=== PATIENT | male | born 1955 | race Caucasian/White ===

== ENCOUNTER 2017-12-26 00:45 | Inpatient (IN) | payer OTHER ==
[~2017-12-26] VITALS: Ht 162.6 cm; Wt 88.3 kg
[2017-12-26] MEDS ORDERED: NITROGLYCERIN 0.4 MG SL PER TAB CHARGE SL PRN ×2 (01:00→02:45)
--- NOTE | 2017-12-26 01:07 | EMERGENCY ROOM VISIT NOTE ---
History Report prepared by Jeniferibtran: Eran Becker Under the Supervision of: Dr. Tyler Juarez M.D. First contact with patient: 00:50 Chief Complaint: CHEST PAIN Stated Complaint: CHEST PAIN Nursing Triage Summary: Pt arrives via ALS litter from [facility] where he was playing cards. Per medic, pt had an acute onset of midsternal chest pain with associated nausea, diaphoresis and lightheadedness. Pt reports breathing felt "labored". Pt reports that he went to the restroom, had a BM and had a near syncopal episode. Pain initially 8/10, given 324mg ASA and 2 ntg sprays. Upon arrival pt states he is feeling "much better" and is rating pain 1/10. Pt denies radiation of pain. Had laser surgery on urethra 3 weeks ago. Sx began approx midnight. Denies cardiac hx. History of Present Illness The patient is a 62 year old male who presents to the Emergency Room with complaints of sternal chest pain. Patient was brought in by EMS. Pain started a x1 hour ago when he went to use the restroom at the [facility]. He does not SOB when the pain started but denies it at this time. He states the pain was "squeezing" and "crushing." Patient was given ASA and Nitro in ambulance and notes his pain has improved since. Patient denies a cardiac history or history of high blood pressure, high cholesterol, or smoking history. Patient denies any urinary complaints the past few days. He denies a fever, abdominal pain, leg swelling or pain, or any other concerns. He denies a history of blood clots. The patient does note he had a recent urological procedure performed. Review of Systems See HPI for pertinent positives & negatives. A total of 10 systems reviewed and were otherwise negative. Constitutional: No fever, No chills Respiratory: + shortness of breath, No cough Abdomen: No pain, No nausea, No vomiting, No diarrhea, No constipation Musculoskeletal: No swelling, No calf pain Genitourinary - Male: No hematuria, No dysuria, No urinary frequency, No urinary urgency Past Medical & Surgical Medical Problems: (1) ARF (acute renal failure) (2) Chest pain in adult (3) No Known Active Medical Problems Surgical Problems: (1) History of hernia repair Family History Cancer Hypertension Social History Smoking Status: Current Some Day Smoker Drug Use: none Marital Status: in relationship Housing Status: lives with significant other Current/Historical Medications No Active Prescriptions or Reported Meds Allergies Coded Allergies: Antihistamines, Diphenhydramine-typ (Verified Adverse Reaction, Unknown, unk, 12/26/17) Physical Exam Vital Signs Date Time Temp Pulse Resp B/P (MAP) Pulse Ox O2 Delivery O2 Flow Rate FiO2 12/26/17 02:25 67 18 97 Room Air 12/26/17 02:16 110/70 12/26/17 02:10 64 16 97 12/26/17 02:01 104/64 12/26/17 01:55 71 14 97 12/26/17 01:47 106/71 12/26/17 01:40 85 20 95 12/26/17 01:35 87 13 94 Room Air 12/26/17 01:30 79 21 99 12/26/17 01:15 72 16 12/26/17 00:53 73 12/26/17 00:45 97 Room Air 12/26/17 00:45 36.4 78 18 121/82 97 Room Air 12/26/17 00:45 97 Room Air Physical Exam GENERAL: Patient is well appearing and in no acute distress. He is mildly anxious appearing. EYES: Horizontal Nystagmus noted; No scleral icterus, unremarkable pupils. ENT: Mucous membranes moist, no nasal congestion. NECK: No masses appreciated, no meningismus, trachea is midline. RESPIRATORY: No dyspnea. Clear to auscultation and equal bilaterally. No wheeze , no rhonchi. CARDIOVASCULAR: Regular rate and rhythm. No murmurs, rubs, gallops appreciated. GASTROINTESTINAL: Abdomen soft, nontender, no peritonitis. Bowel sounds positive. No masses appreciated. BACK: No midline tenderness, no CVA tenderness EXTREMITIES: Normal motion all extremities, no cyanosis, no edema. NEUROLOGIC: Alert and oriented, no acute motor or sensory deficits, no focal weakness, cranial nerves grossly intact. SKIN: No rash, no jaundice, no diaphoresis. Medical Decision & Procedures ER Provider Diagnostic Interpretation: X ray results are stated below per my interpretation: Chest: 1 view: No infiltrate, no effusion, normal cardiac border. CXR is rotated. Laboratory Results 12/26/17 00:26 Red Blood Count 5.89, Mean Corpuscular Volume 87.3, Mean Corpuscular Hemoglobin 31.2, Mean Corpuscular Hemoglobin Concent 35.8, Mean Platelet Volume 9.4, Neutrophils (%) (Auto) 57.2, Lymphocytes (%) (Auto) 30.1, Monocytes (%) (Auto) 7.8, Eosinophils (%) (Auto) 3.9, Basophils (%) (Auto) 0.2, Neutrophils # (Auto) 5.10, Lymphocytes # (Auto) 2.69, Monocytes # (Auto) 0.70, Eosinophils # (Auto) 0.35, Basophils # (Auto) 0.02 12/26/17 00:26 Test 12/26/17 00:26 12/26/17 01:46 White Blood Count 8.93 K/uL (4.8-10.8) Red Blood Count 5.89 M/uL (4.7-6.1) Hemoglobin 18.4 g/dL (14.0-18.0) Hematocrit 51.4 % (42-52) Mean Corpuscular Volume 87.3 fL (80-100) Mean Corpuscular Hemoglobin 31.2 pg (25-34) Mean Corpuscular Hemoglobin Concent 35.8 g/dl (32-36) Platelet Count 173 K/uL (130-400) Mean Platelet Volume 9.4 fL (7.4-10.4) Neutrophils (%) (Auto) 57.2 % Lymphocytes (%) (Auto) 30.1 % Monocytes (%) (Auto) 7.8 % Eosinophils (%) (Auto) 3.9 % Basophils (%) (Auto) 0.2 % Neutrophils # (Auto) 5.10 K/uL (1.4-6.5) Lymphocytes # (Auto) 2.69 K/uL (1.2-3.4) Monocytes # (Auto) 0.70 K/uL (0.11-0.59) Eosinophils # (Auto) 0.35 K/uL (0-0.5) Basophils # (Auto) 0.02 K/uL (0-0.2) RDW Standard Deviation 40.9 fL (36.4-46.3) RDW Coefficient of Variation 12.8 % (11.5-14.5) Immature Granulocyte % (Auto) 0.8 % Immature Granulocyte # (Auto) 0.07 K/uL (0.00-0.02) Anion Gap 8.0 mmol/L (3-11) Est Creatinine Clear Calc Drug Dose 34.2 ml/min Estimated GFR () 40.4 Estimated GFR (Non- 34.9 BUN/Creatinine Ratio 10.8 (10-20) Calcium Level 8.9 mg/dl (8.5-10.1) Bedside D-Dimer 363 ng/mlFEU (0-450) Medications Administered Medications (Trade) Dose Ordered Sig/Lillian Route Start Time Stop Time Status Last Admin Dose Admin Nitroglycerin (Nitrostat Tab) 0.4 mg Q5M PRN SL 12/26/17 01:00 12/26/17 02:54 DC 12/26/17 01:31 0.4 MG Nitroglycerin (Nitroglycerin 2% Oint) 1 inch NOW ONCE EXT 12/26/17 01:30 12/26/17 01:31 DC 12/26/17 01:32 1 INCH Sodium Chloride 1,000 ml @ 999 mls/hr Q1H1M STAT IV 12/26/17 01:43 12/26/17 02:43 DC 12/26/17 01:49 999 MLS/HR Fentanyl Citrate (Fentanyl Inj) 75 mcg NOW STAT IV 12/26/17 01:43 12/26/17 01:44 DC 12/26/17 01:49 75 MCG ECG Per My Interpretation Rate (beats per minute): 72 Rhythm: normal sinus Findings: no ectopy, other (no ischemia. QTC 440) Comparison ECG Date: no prior available ED Course Bedside Monitor ReadinAM: Pulse: 75 on bedside monitor, normal sinus rhythm, "as interpreted by me." 0104AM: Oxygen Saturation: 98% on room air, within normal limits, "as interpreted by me." Repeat EKG 0130: Normal Sinus Rhythm with a rate of 77 beats per minute. No ectopy or ischemia. Compared to his EKG from earlier this evening there is t-wave flattening laterally with no stemi noted. "As interpreted by me." Medical Decision Mr. Mina is a pleasant 62 year old male who reports to the ED for crushing chest pain noted x1 hour FINANCIAL AID. Patient received ASA and Nitro in route by EMS and noted his pain improved. EKG initially ok, did have some repeat cp pain requiring SLNTG, nitro paste, and small dose fentanyl. Repeat EKG with some flattened T waves. Very concerning story for unstable angina. Looking well and stable. CXR clear. He cr is bumped a bit. With stable vitals, no risk factors and negative dimer I feel this is unlikely PE/Dissection and that CT would be dangerous given his renal function. He is comfortable with coming in to hospital. Differential Diagnosis: Cardiac Ischemia (STEMI, NSTEMI, Unstable Angina, etc), Aortic Dissection, Arrhythmia, Pulmonary Embolism, Pneumonia, Pneumothorax, MSK, Infectious, Pericarditis/Myocarditis, Esophageal Rupture, Gastrointestinal, amongst other pathologies entertained. Rechecks: 0124: Patient's chest pain is returning. We will repeat his EKG. 0140: Still substernal chest pain after Nitro that he was given here. 0200: Patient is feeling better, and has no chest pain at this time. 0215: Discussed admission with the patient and he agrees. Patient will be admitted to Dr. Peres's service. Medication Reconcilliation Current Medication List: was personally reviewed by me Blood Pressure Screening Patient's blood pressure: Normal blood pressure Consults Time Called: 214 Consulting Physician: Dr. Peres Reviewed HPI, ROS, PE, and findings. At this time he agrees to admit the patient. Impression Primary Impression: Substernal chest pain Additional Impression: Acute renal insufficiency Scribe Attestation The scribe's documentation has been prepared under my direction and personally reviewed by me in its entirety. I confirm that the note above accurately reflects all work, treatment, procedures, and medical decision making performed by me. Departure Information Dispostion Being Evaluated By Hospitalist Prescriptions No Active Prescriptions or Reported Meds Referrals Salvatore Martinez M.D. (PCP) Forms Call Back Authorization, HOME CARE DOCUMENTATION FORM, IMPORTANT VISIT INFORMATION Patient Instructions [facility] Problem Qualifiers
[2017-12-26 01:15] LABS: BASO % 0.2 %; BASO ABS # 0.02 K/uL (0-0.2); EOS % 3.9 %; EOS ABS # 0.35 K/uL (0-0.5); HEMATOCRIT 51.4 % (42-52); HEMOGLOBIN 18.4 g/dL (14.0-18.0); IG# 0.07 K/uL (0.00-0.02); LYMPH % 30.1 %; LYMPH ABS # 2.69 K/uL (1.2-3.4); MEAN CELL VOLUME 87.3 fL (80-100); MEAN CORPUSCULAR HEMOGLOBIN 31.2 pg (25-34); MEAN CORPUSCULAR HGB CONC 35.8 g/dl (32-36); MEAN PLATELET VOLUME 9.4 fL (7.4-10.4); MONO % 7.8 %; NEUT % 57.2 %; PLATELET COUNT 173 K/uL (130-400); RED CELL DISTRIBUTION WIDTH CV 12.8 % (11.5-14.5); RED CELL DISTRIBUTION WIDTH SD 40.9 fL (36.4-46.3); WHITE BLOOD COUNT 8.93 K/uL (4.8-10.8)
[2017-12-26] MEDS ORDERED: NITROGLYCERIN 2% OINTMENT 30GM TUBE EXT ONE ×2 (01:27→01:30)
[2017-12-26 01:41] LABS: BLOOD UREA NITROGEN 21 mg/dl (7-18); CALCIUM 8.9 mg/dl (8.5-10.1); CARBON DIOXIDE 26 mmol/L (21-32); CREATININE 1.97 mg/dl (0.60-1.40); GLUCOSE 138 mg/dl (70-99); POTASSIUM 3.3 mmol/L (3.5-5.1); SODIUM 139 mmol/L (136-145)
[2017-12-26] MEDS ORDERED: FENTANYL CITRATE INJ 50 MCG/1 ML 2 ML VIAL IV STA (01:43)
[2017-12-26] MEDS ORDERED: SODIUM CHLORIDE 0.9% 1000ML 1,000 ML IV STA (01:43)
[2017-12-26] MEDS ORDERED: MoRPHine SULFATE 2 MG/ML CARP IV PRN (02:45)
[2017-12-26] MEDS ORDERED: ACETAMINOPHEN 325 MG TAB PO PRN (02:45)
[2017-12-26] MEDS ORDERED: ONDANSETRON INJ 2 MG/ML 2 ML VIAL IV PRN (02:45)
[2017-12-26] MEDS ORDERED: MAGNESIUM HYDROXIDE SUSP 30 ML UDC PO PRN (02:45)
[2017-12-26] MEDS ORDERED: ZOLPIDEM TARTRATE 5 MG TAB PO PRN (02:45)
[2017-12-26] MEDS ORDERED: ALUMINUM/MAGNESIUM/SIMETH (MAALOX MAX) 30 ML UDC PO PRN (02:45)
[2017-12-26] MEDS ORDERED: POLYETHYLENE (MIRALAX) 17 GM PACK PO PRN (02:45)
--- NOTE | 2017-12-26 03:06 | History and Physical ---
History & Physical Date & Time of Service: Dec 26, 2017 at 02:45 Chief Complaint: Chest Pain Primary Care Physician: Salvatore Martinez M.D. History of Present Illness Source: patient, hospital records 62 y/o M without a significant medical history. Developed central CP, nonradiating, associated with SOB, diaphoresis and nausea. The pain was relieved by NTG and Fentanyl on arrival to the ER. Initial troponin is negative , An EKG shows flattening of T waves in lateral leads as compared to a repeat EKG obtained after his CP had resolved. Initial labs are notable for ARF with a creatinine of 2.0. He denies a history of CKD. He recently had surgery for a urethral stricture and denies any dysuria over the past few wks. Past Medical/Surgical History 1) Urethral stricture - repaired 11/2107 2) Umbilical hernia surgery 2000 Family History Cancer Hypertension Father due to complications of Parkinson's and dementia - age 82 Mother due to anemia - she was transfusion-dependent and decided after a while that she did not want any further transfusions per family Social History Smokes cigars most days - does not drink any alcohol. 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 Smoking Status: Current Some Day Smoker Drug Use: none Marital Status: in relationship Allergies Coded Allergies: Antihistamines, Diphenhydramine-typ (Verified Adverse Reaction, Unknown, unk, 12/26/17) Home Medications No Active Prescriptions or Reported Meds Review of Systems Constitutional: + sweats, No fever, No chills Eyes: No worsening of vision ENT: No hearing loss, No unusual epistaxis, No nasal symptoms Respiratory: + shortness of breath, No cough, No sputum, No wheezing Cardiovascular: + chest pain, No orthopnea, No PND Abdomen: + nausea, No pain Musculoskeletal: No joint pain Genitourinary - Male: No hematuria, No dysuria Neurologic: No memory loss, No paralysis, No weakness Psychiatric: No depression symptoms Endocrine: No fatigue Hematologic / Lymphatic: No abnormal bleeding/bruising Integumentary: No rash Allergic / Immunologic: No environmental allergies Physical Exam Vital Signs Date Time Temp Pulse Resp B/P (MAP) Pulse Ox O2 Delivery O2 Flow Rate FiO2 12/26/17 02:25 67 18 97 Room Air 12/26/17 02:16 110/70 12/26/17 02:10 64 16 97 12/26/17 02:01 104/64 12/26/17 01:55 71 14 97 12/26/17 01:47 106/71 12/26/17 01:40 85 20 95 12/26/17 01:35 87 13 94 Room Air 12/26/17 01:30 79 21 99 12/26/17 01:15 72 16 12/26/17 00:53 73 12/26/17 00:45 97 Room Air 12/26/17 00:45 36.4 78 18 121/82 97 Room Air 12/26/17 00:45 97 Room Air General Appearance: WD/WN, no apparent distress, + pertinent finding ( Overweight, middle-aged male - no distress) Head: normocephalic Eyes: normal inspection ENT: normal ENT inspection, pharynx normal Neck: supple, no JVD Respiratory/Chest: chest non-tender, lungs clear, normal breath sounds Cardiovascular: regular rate, rhythm, no edema, no gallop Abdomen/GI: normal bowel sounds, non tender, soft Back: normal inspection, no CVA tenderness Extremities/Musculoskelatal: normal inspection, no calf tenderness, normal capillary refill 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, no motor/sensory deficits, alert, oriented x 3 Skin: normal color Diagnostics Laboratory Results Results Past 24 Hours Test 12/26/17 00:26 12/26/17 01:46 Range/Units White Blood Count 8.93 4.8-10.8 K/uL Red Blood Count 5.89 4.7-6.1 M/uL Hemoglobin 18.4 14.0-18.0 g/dL Hematocrit 51.4 42-52 % Mean Corpuscular Volume 87.3 80-100 fL Mean Corpuscular Hemoglobin 31.2 25-34 pg Mean Corpuscular Hemoglobin Concent 35.8 32-36 g/dl Platelet Count 173 130-400 K/uL Mean Platelet Volume 9.4 7.4-10.4 fL Neutrophils (%) (Auto) 57.2 % Lymphocytes (%) (Auto) 30.1 % Monocytes (%) (Auto) 7.8 % Eosinophils (%) (Auto) 3.9 % Basophils (%) (Auto) 0.2 % Neutrophils # (Auto) 5.10 1.4-6.5 K/uL Lymphocytes # (Auto) 2.69 1.2-3.4 K/uL Monocytes # (Auto) 0.70 0.11-0.59 K/uL Eosinophils # (Auto) 0.35 0-0.5 K/uL Basophils # (Auto) 0.02 0-0.2 K/uL RDW Standard Deviation 40.9 36.4-46.3 fL RDW Coefficient of Variation 12.8 11.5-14.5 % Immature Granulocyte % (Auto) 0.8 % Immature Granulocyte # (Auto) 0.07 0.00-0.02 K/uL Sodium Level 139 136-145 mmol/L Potassium Level 3.3 3.5-5.1 mmol/L Chloride Level 105 98-107 mmol/L Carbon Dioxide Level 26 21-32 mmol/L Anion Gap 8.0 3-11 mmol/L Blood Urea Nitrogen 21 7-18 mg/dl Creatinine 1.97 0.60-1.40 mg/dl Est Creatinine Clear Calc Drug Dose 34.2 ml/min Estimated GFR () 40.4 Estimated GFR (Non- 34.9 BUN/Creatinine Ratio 10.8 10-20 Random Glucose 138 70-99 mg/dl Calcium Level 8.9 8.5-10.1 mg/dl Troponin I < 0.015 0-0.045 ng/ml Bedside D-Dimer 363 0-450 ng/mlFEU EKG T waves are flatter in the lateral leads on an initial EKG as compared to a follow up Impression Assessment and Plan 62 y/o M without a significant medical history. Developed central CP, nonradiating, associated with SOB, diaphoresis and nausea. The pain was relieved by NTG and Fentanyl on arrival to the ER. Initial troponin is negative , An EKG shows flattening of T waves in lateral leads as compared to a repeat EKG obtained after his CP had resolved. Initial labs are notable for ARF with a creatinine of 2.0. leukocytosis and mild hypokalemia. He denies a history of CKD. He recently had surgery for a urethral stricture and denies any dysuria over the past few wks. 1) Chest pain - pt has radha factors of age, weight, smoking. The history is convincing for cardiac etiology and there are subtle EKG changes. He will be placed on ASA, a Statin and full-dose Heparin pending a second troponin. If he rules out, an inpt stress test would be merited. 2) ARF - chronicity is not entirely clear. We can likely source pre-op numbers from his primary considering his recent urethral surgery. He does not report any dysuria so obstructive uropathy is unlikely at present. He does state that he was mowing his lawn in the heat all day and his BUN is slightly elevated as well. This may be prerenal therefore. He was provided with a fluid bolus in the ER and we will continue aggressive hydration as he may require a cath eventually. A repeat BMP is pending for AM. 3) K is slightly low and has been repleted. 4) Smoking cessation will be addressed. Full code - Heparin prophylaxis Total time for this admit including review of labs, meds, imaging, records - discussion with pt and ER attending - 35 min Resuscitation Status VTE Prophylaxis Will order VTE Prophylaxis: Yes
[2017-12-26] MEDS ORDERED: HEPARIN 25000 UNIT/500 ML D5W ONE (03:30)
[2017-12-26] MEDS ORDERED: MAGNESIUM SULFATE 1GM / D5W 1 GM BAG IV ONE (03:30)
[2017-12-26] MEDS ORDERED: POTASSIUM CHLORIDE PWD 20 MEQ PACK PO ONE (03:45)
[2017-12-26] MEDS ORDERED: MAGNESIUM SULFATE 1GM / D5W 100 ML IV ONE (03:45)
[2017-12-26] MEDS ORDERED: HEPARIN SOD 5000 UNIT/0.5 ML CARP ONE (03:51)
[2017-12-26] MEDS: HEPARIN 25,000 UNIT/500ML D5W 500 ML IV SCH ×2 (04:08→23:43)
[2017-12-26] MEDS: D5NSS + 20MEQ KCL 1,000 ML IV SCH ×2 (05:06→11:45)
[2017-12-26 05:27] VITALS: BP 113/69; PULSE 82; TEMP 36.9; BMI 32.7
[2017-12-26] MEDS ORDERED: HEPARIN SOD 5000 UNIT/0.5 ML CARP SQ SCH (06:00)
--- NOTE | 2017-12-26 07:00 | DIAGNOSTIC IMAGING REPORT ---
CHEST ONE VIEW PORTABLE CLINICAL HISTORY: Chest pain. COMPARISON STUDY: No previous studies for comparison. FINDINGS: Patient is rotated. No pneumothorax or pleural effusion is noted. No consolidation. Mild elevation of the left hemidiaphragm is noted. There is mild enlargement of the cardiac silhouette. Pulmonary vascularity is normal. IMPRESSION: No acute cardiopulmonary findings. Electronically signed by: Sameer Skinner M.D. 12/26/2017 6:59 AM Dictated Date/Time: 12/26/2017 6:57 AM
[2017-12-26 07:38] VITALS: BP 109/66; PULSE 83; TEMP 37; O2SAT 95
[2017-12-26] MEDS: ATORVASTATIN 40 MG TAB PO SCH (08:03)
[2017-12-26] MEDS: ASPIRIN 81 MG ECTAB PO SCH (08:03)
[2017-12-26 08:13] LABS: HEMATOCRIT 42.3 % (42-52); HEMOGLOBIN 14.6 g/dL (14.0-18.0); MEAN CELL VOLUME 86.9 fL (80-100); MEAN CORPUSCULAR HGB CONC 34.5 g/dl (32-36); MEAN PLATELET VOLUME 9.3 fL (7.4-10.4); PLATELET COUNT 160 K/uL (130-400); RED CELL DISTRIBUTION WIDTH CV 12.7 % (11.5-14.5); RED CELL DISTRIBUTION WIDTH SD 40.8 fL (36.4-46.3); WHITE BLOOD COUNT 8.33 K/uL (4.8-10.8)
[2017-12-26 08:34] LABS: CALCIUM 8.4 mg/dl (8.5-10.1); CREATININE 1.48 mg/dl (0.60-1.40); POTASSIUM 4.6 mmol/L (3.5-5.1)
[2017-12-26 10:32] LABS: PTT PATIENT 47.1 SECONDS (21.0-31.0)
[2017-12-26 11:39] VITALS: BP 98/65; PULSE 72; TEMP 37; O2SAT 96
[2017-12-26] MEDS ORDERED: PERFLUTREN LIPID MICROSPHERE (DEFINITY) IV ONE (13:51)
[2017-12-26 13:57] LABS: CALCIUM 8.5 mg/dl (8.5-10.1); CREATININE 1.18 mg/dl (0.60-1.40); POTASSIUM 4.1 mmol/L (3.5-5.1)
--- NOTE | 2017-12-26 14:59 | Hospitalist Progress Note ---
Hospitalist Progress Note Date of Service Dec 26, 2017. Subjective Pt evaluation today including: conversation w/ patient, conversation w/ family , physical exam, chart review, lab review, review of studies, conversation w/ device sales consultant (Dr. Garay), review of inpatient medication list Patient seen and evaluated. Admitted early this AM for CP. Patient is completely asymptomatic at this time. No further syncopal episodes or CP. RUSTY is now resolved and urinating without issue. Likely pre-renal in setting of mild dehydration from lawn mowing but did have a urethral stricture repaired approx. 3 weeks ago but given resolution an obstructive cause is unlikely Initial two troponins were negative but third did mildly increase to 0.082 and now most recent is 0.[address] Garay who will be seeing the patient in consultation. Heparin gtt was initiated on admission without issues at this time. Constitutional: No fever, No chills Respiratory: No cough, No shortness of breath Cardiovascular: No chest pain, No palpitations Abdomen: No pain, No nausea, No vomiting, No diarrhea, No constipation Musculoskeletal: No swelling, No calf pain Heme: No abnormal bleeding/bruising Medications Current Inpatient Medications Medications (Trade) Dose Ordered Sig/Lillian Route Start Time Stop Time Status Last Admin Dose Admin Potassium Chloride/Dextrose/ Sod Cl 1,000 ml @ 150 mls/hr Q6H40M IV 12/26/17 03:45 12/26/17 17:04 12/26/17 11:45 150 MLS/HR Acetaminophen (Tylenol Tab) 650 mg Q4H PRN PO 12/26/17 02:45 01/25/18 02:44 Al Hydrox/Mg Hydrox/Simethicone (Maalox Max Susp) 15 ml Q4H PRN PO 12/26/17 02:45 01/25/18 02:44 Magnesium Hydroxide (Milk Of Magnesia Susp) 30 ml Q12H PRN PO 12/26/17 02:45 01/25/18 02:44 Zolpidem Tartrate (Ambien Tab) 5 mg HSZ PRN PO 12/26/17 02:45 01/25/18 02:44 Ondansetron HCl (Zofran Inj) 4 mg Q6H PRN IV 12/26/17 02:45 01/25/18 02:44 Nitroglycerin (Nitrostat Tab) 0.4 mg UD PRN SL 12/26/17 02:45 01/25/18 02:44 Morphine Sulfate (MoRPHine SULFATE INJ) 2 mg Q30M PRN IV 12/26/17 02:45 01/09/18 02:44 Aspirin (Ecotrin Tab) 81 mg QAM PO 12/26/17 09:00 01/25/18 08:59 12/26/17 08:03 81 MG Polyethylene (Miralax Powder Packet) 17 gm DAILY PRN PO 12/26/17 02:45 01/25/18 02:44 Atorvastatin Calcium (Lipitor Tab) 40 mg QAM PO 12/26/17 09:00 01/25/18 08:59 12/26/17 08:03 40 MG Heparin Sodium/ Dextrose 500 ml @ 24 mls/hr [id number] IV 12/26/17 04:00 01/25/18 03:59 12/26/17 04:08 24 MLS/HR Objective Vital Signs Date Time Temp Pulse Resp B/P (MAP) Pulse Ox O2 Delivery O2 Flow Rate FiO2 12/26/17 11:39 37.0 72 19 98/65 (76) 96 Room Air 12/26/17 08:35 Room Air 12/26/17 07:38 37.0 83 19 109/66 (80) 95 Room Air 12/26/17 05:27 36.9 82 14 113/69 Room Air 12/26/17 04:01 71 18 116/75 96 Room Air 12/26/17 02:25 67 18 97 Room Air 12/26/17 02:16 110/70 12/26/17 02:10 64 16 97 12/26/17 02:01 104/64 12/26/17 01:55 71 14 97 12/26/17 01:47 106/71 12/26/17 01:40 85 20 95 12/26/17 01:35 87 13 94 Room Air 12/26/17 01:30 79 21 99 12/26/17 01:15 72 16 12/26/17 00:53 73 12/26/17 00:45 97 Room Air 12/26/17 00:45 36.4 78 18 121/82 97 Room Air 12/26/17 00:45 97 Room Air Physical Exam General Appearance: WD/WN, no apparent distress Eyes: sclerae normal ENT: hearing grossly normal Neck: supple, no JVD, trachea midline Respiratory/Chest: lungs clear, normal breath sounds, no respiratory distress, no accessory muscle use Cardiovascular: regular rate, rhythm, no gallop, no murmur Abdomen: normal bowel sounds, non tender, soft Extremities: no pedal edema Neurologic/Psychiatric: alert, oriented x 3 Skin: normal color, warm/dry Laboratory Results Last 24 Hours Test 12/26/17 00:26 12/26/17 01:46 12/26/17 04:18 12/26/17 04:37 White Blood Count 8.93 K/uL Red Blood Count 5.89 M/uL Hemoglobin 18.4 g/dL Hematocrit 51.4 % Mean Corpuscular Volume 87.3 fL Mean Corpuscular Hemoglobin 31.2 pg Mean Corpuscular Hemoglobin Concent 35.8 g/dl Platelet Count 173 K/uL Mean Platelet Volume 9.4 fL Neutrophils (%) (Auto) 57.2 % Lymphocytes (%) (Auto) 30.1 % Monocytes (%) (Auto) 7.8 % Eosinophils (%) (Auto) 3.9 % Basophils (%) (Auto) 0.2 % Neutrophils # (Auto) 5.10 K/uL Lymphocytes # (Auto) 2.69 K/uL Monocytes # (Auto) 0.70 K/uL Eosinophils # (Auto) 0.35 K/uL Basophils # (Auto) 0.02 K/uL RDW Standard Deviation 40.9 fL RDW Coefficient of Variation 12.8 % Immature Granulocyte % (Auto) 0.8 % Immature Granulocyte # (Auto) 0.07 K/uL Sodium Level 139 mmol/L Potassium Level 3.3 mmol/L Chloride Level 105 mmol/L Carbon Dioxide Level 26 mmol/L Anion Gap 8.0 mmol/L Blood Urea Nitrogen 21 mg/dl Creatinine 1.97 mg/dl Est Creatinine Clear Calc Drug Dose 34.2 ml/min Estimated GFR () 40.4 Estimated GFR (Non- 34.9 BUN/Creatinine Ratio 10.8 Random Glucose 138 mg/dl Calcium Level 8.9 mg/dl Troponin I < 0.015 ng/ml < 0.015 ng/ml Bedside D-Dimer 363 ng/mlFEU Activated Partial Thromboplast Time 25.0 SECONDS Partial Thromboplastin Ratio 1.0 Test 12/26/17 07:50 12/26/17 10:03 12/26/17 13:00 White Blood Count 8.33 K/uL Red Blood Count 4.87 M/uL Hemoglobin 14.6 g/dL Hematocrit 42.3 % Mean Corpuscular Volume 86.9 fL Mean Corpuscular Hemoglobin 30.0 pg Mean Corpuscular Hemoglobin Concent 34.5 g/dl RDW Standard Deviation 40.8 fL RDW Coefficient of Variation 12.7 % Platelet Count 160 K/uL Mean Platelet Volume 9.3 fL Sodium Level 140 mmol/L 139 mmol/L Potassium Level 4.6 mmol/L 4.1 mmol/L Chloride Level 108 mmol/L 110 mmol/L Carbon Dioxide Level 25 mmol/L 23 mmol/L Anion Gap 7.0 mmol/L 6.0 mmol/L Blood Urea Nitrogen 18 mg/dl 15 mg/dl Creatinine 1.48 mg/dl 1.18 mg/dl Est Creatinine Clear Calc Drug Dose 50.0 ml/min 62.7 ml/min Estimated GFR () 57.1 75.1 Estimated GFR (Non- 49.3 64.8 BUN/Creatinine Ratio 12.2 12.5 Random Glucose 214 mg/dl 191 mg/dl Calcium Level 8.4 mg/dl 8.5 mg/dl Magnesium Level 2.5 mg/dl Troponin I 0.082 ng/ml 0.759 ng/ml Triglycerides Level 102 mg/dl Cholesterol Level 175 mg/dl HDL Cholesterol 35 mg/dl LDL Cholesterol, Calculated 120 mg/dl VLDL Cholesterol, Calculated 20 mg/dl Cholesterol/HDL Ratio 5.0 Hepatitis C Antibody Screen NEG Activated Partial Thromboplast Time 47.1 SECONDS Partial Thromboplastin Ratio 1.8 Assessment and Plan 62 y/o M without a significant medical history. Developed central CP, nonradiating, associated with SOB, diaphoresis and nausea. The pain was relieved by NTG and Fentanyl on arrival to the ER. Initial troponin is negative , An EKG shows flattening of T waves in lateral leads as compared to a repeat EKG obtained after his CP had resolved. Initial labs are notable for ARF with a creatinine of 2.0. leukocytosis and mild hypokalemia. He denies a history of CKD. He recently had surgery for a urethral stricture and denies any dysuria over the past few wks. Chest Pain - Possible NSTEMI: - Patient is completely asymptomatic at this time - troponins were initially negative but trended to 0.08 and with most recent lab is at 0.7 - with initial elevated troponin it maybe explained by the RUSTY however with the continue climb this may be more of a cardiac etiology - Continue heparin gtt at this time - likely cover x 48 hours - ASA 81 mg daily; Atorvastatin 40 mg daily - Echo pending - Consult cardiology - discussed with Dr. Garay - plan for continued troponin checks and echo to assess wall motion abnormalities; pending trop trending and eval consideration for heart catheterization Acute Kidney Injury - Likely Pre-Renal: - Has ureteral stricture repair approx. [address] Jackson - no issues urinary mcgrath - given the improvement with fluids this was likely pre- renal and no signs of obstruction at this time but will continue to monitor DVT Prophylaxis: Heparin gtt Code Status: FULL RESUSCITATION Disposition: From home Continued [facility] stay due to: multiple IV medications needed Discharge planning: home
--- NOTE | 2017-12-26 15:21 | History and Physical ---
History General Date of Service: Dec 26, 2017. Stated Complaint: Chest Pain (Pawan Medley D.O.) History of Present Illness This is a resident note. 62 y/o M with no significant PMH presented to ER 12/26 with nonradiating CP along with SOB, diaphoresis, and nausea , and was relieved by NTG and fentanyl. Initial trops were negative and EKG showed flattened T waves on lateral leads. Today, pt found in bed in NAD and no other concerns or complaints. Historian: patient (Pawan Medley D.O.) Review of Systems Constitutional: No fever, No chills, No sweats, No weakness Respiratory: No cough, No wheezing, No shortness of breath Cardiac: No chest pain, No edema, No palpitations Abdomen: No pain, No nausea, No vomiting, No diarrhea, No constipation Male : No dysuria, No hematuria Heme: No abnormal bleeding/bruising Skin: No rash, No itch, No new/changing skin lesions (Pawan Medley D.Suhail.) Musculoskeletal: No joint pain, No muscle pain, No swelling, No calf pain ( Pawan Medley D.Suhail.) All Other Systems: Reviewed and Negative (Pawan Medley D.Nnamdi) Family History Cancer Hypertension (Pawan Medley D.Suhail.) Cancer Hypertension (Brody Garay MD) Social History Smoking Status: Current Some Day Smoker (1 cigar/day. No cigarettes. 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) Drug Use: none Marital Status: in relationship (gf) Housing Status: lives with significant other (Pawan Medley D.Nnamdi) History of MDRO History of MDRO: No (Pawan Medley D.Nnamdi) Allergies Coded Allergies: Antihistamines, Diphenhydramine-typ (Verified Adverse Reaction, Unknown, unk, 12/26/17) Current Home Medications Reported Home Medications Medications Dose Route/Sig Max Daily Dose Days Date Category No Active Prescriptions or Reported Medications Rx (Pawan Medley, Elpidio.O.) Physical Exam Date Time Temp Pulse Resp B/P (MAP) Pulse Ox O2 Delivery O2 Flow Rate FiO2 12/26/17 11:39 37.0 72 19 98/65 (76) 96 Room Air 12/26/17 08:35 Room Air 12/26/17 07:38 37.0 83 19 109/66 (80) 95 Room Air 12/26/17 05:27 36.9 82 14 113/69 Room Air 12/26/17 04:01 71 18 116/75 96 Room Air 12/26/17 02:25 67 18 97 Room Air 12/26/17 02:16 110/70 12/26/17 02:10 64 16 97 12/26/17 02:01 104/64 12/26/17 01:55 71 14 97 12/26/17 01:47 106/71 12/26/17 01:40 85 20 95 12/26/17 01:35 87 13 94 Room Air 12/26/17 01:30 79 21 99 12/26/17 01:15 72 16 12/26/17 00:53 73 12/26/17 00:45 97 Room Air 12/26/17 00:45 36.4 78 18 121/82 97 Room Air 12/26/17 00:45 97 Room Air Weight in Kilograms: 86.500 Constitutional: General Apperance: heathly-appearing Level of Distress: NAD Head: normocephalic, atraumatic Lungs: Respiratory effort: no dyspnea Auscultation: breath sounds normal, no wheezing, no rales/crackles Cardiovascular: Heart Auscultation: RRR, normal S1, normal S2, no murmurs Abdomen: Inspection & Palpation: soft, non-distended, no tenderness, guarding & rebound Extremities: no cyanosis, no edema (Pawan Medley., D.OLeena) Diagnostics Laboratory Results Results Past 24 Hours Test 12/26/17 00:26 12/26/17 01:46 12/26/17 04:18 12/26/17 04:37 Range/Units White Blood Count 8.93 4.8-10.8 K/uL Red Blood Count 5.89 4.7-6.1 M/uL Hemoglobin 18.4 14.0-18.0 g/dL Hematocrit 51.4 42-52 % Mean Corpuscular Volume 87.3 80-100 fL Mean Corpuscular Hemoglobin 31.2 25-34 pg Mean Corpuscular Hemoglobin Concent 35.8 32-36 g/dl Platelet Count 173 130-400 K/uL Mean Platelet Volume 9.4 7.4-10.4 fL Neutrophils (%) (Auto) 57.2 % Lymphocytes (%) (Auto) 30.1 % Monocytes (%) (Auto) 7.8 % Eosinophils (%) (Auto) 3.9 % Basophils (%) (Auto) 0.2 % Neutrophils # (Auto) 5.10 1.4-6.5 K/uL Lymphocytes # (Auto) 2.69 1.2-3.4 K/uL Monocytes # (Auto) 0.70 0.11-0.59 K/uL Eosinophils # (Auto) 0.35 0-0.5 K/uL Basophils # (Auto) 0.02 0-0.2 K/uL RDW Standard Deviation 40.9 36.4-46.3 fL RDW Coefficient of Variation 12.8 11.5-14.5 % Immature Granulocyte % (Auto) 0.8 % Immature Granulocyte # (Auto) 0.07 0.00-0.02 K/uL Sodium Level 139 136-145 mmol/L Potassium Level 3.3 3.5-5.1 mmol/L Chloride Level 105 98-107 mmol/L Carbon Dioxide Level 26 21-32 mmol/L Anion Gap 8.0 3-11 mmol/L Blood Urea Nitrogen 21 7-18 mg/dl Creatinine 1.97 0.60-1.40 mg/dl Est Creatinine Clear Calc Drug Dose 34.2 ml/min Estimated GFR () 40.4 Estimated GFR (Non- 34.9 BUN/Creatinine Ratio 10.8 10-20 Random Glucose 138 70-99 mg/dl Calcium Level 8.9 8.5-10.1 mg/dl Troponin I < 0.015 < 0.015 0-0.045 ng/ml Bedside D-Dimer 363 0-450 ng/mlFEU Activated Partial Thromboplast Time 25.0 21.0-31.0 SECONDS Partial Thromboplastin Ratio 1.0 Test 12/26/17 07:50 12/26/17 10:03 12/26/17 13:00 Range/Units White Blood Count 8.33 4.8-10.8 K/uL Red Blood Count 4.87 4.7-6.1 M/uL Hemoglobin 14.6 14.0-18.0 g/dL Hematocrit 42.3 42-52 % Mean Corpuscular Volume 86.9 80-100 fL Mean Corpuscular Hemoglobin 30.0 25-34 pg Mean Corpuscular Hemoglobin Concent 34.5 32-36 g/dl RDW Standard Deviation 40.8 36.4-46.3 fL RDW Coefficient of Variation 12.7 11.5-14.5 % Platelet Count 160 130-400 K/uL Mean Platelet Volume 9.3 7.4-10.4 fL Sodium Level 140 139 136-145 mmol/L Potassium Level 4.6 4.1 3.5-5.1 mmol/L Chloride Level 108 110 98-107 mmol/L Carbon Dioxide Level 25 23 21-32 mmol/L Anion Gap 7.0 6.0 3-11 mmol/L Blood Urea Nitrogen 18 15 7-18 mg/dl Creatinine 1.48 1.18 0.60-1.40 mg/dl Est Creatinine Clear Calc Drug Dose 50.0 62.7 ml/min Estimated GFR () 57.1 75.1 Estimated GFR (Non- 49.3 64.8 BUN/Creatinine Ratio 12.2 12.5 10-20 Random Glucose 214 191 70-99 mg/dl Calcium Level 8.4 8.5 8.5-10.1 mg/dl Magnesium Level 2.5 1.8-2.4 mg/dl Troponin I 0.082 0.759 0-0.045 ng/ml Triglycerides Level 102 0-150 mg/dl Cholesterol Level 175 0-200 mg/dl HDL Cholesterol 35 mg/dl LDL Cholesterol, Calculated 120 mg/dl VLDL Cholesterol, Calculated 20 mg/dl Cholesterol/HDL Ratio 5.0 Hepatitis C Antibody Screen NEG NEG Activated Partial Thromboplast Time 47.1 21.0-31.0 SECONDS Partial Thromboplastin Ratio 1.8 (Pawan Medley, D.O.) Impression Assessment and Plan 1) Chest Pain -asymptomatic currently -trop elevated 0.759. Continue to trend -Echo performed in afternoon, awaiting results -currently on heparin drip, will continue -ASA 81 mg and atorvastatin 40 mg daily, continue -Pt is contemplating whether to pursue Cath. Discussed benefits/risks with team. Will f/u tomorrow. -If have ongoing CP, notify immediately to nurse 2) RUSTY -no urinary complaints currently -continue to monitor (Pawan Medley, Elpidio.O.) Addendum by Cardiology attending: This is family practice resident note. Please see my note under separate cover for cardiology consultation/note. Nahid Garay (Brody Garay MD) Advanced Directives Existing Living Will: No Existing Power of Primer Supervisor: No (Pawan Medley, D.O.) Resuscitation Status FULL RESUSCITATION (Pawan Medley, Elpidio.O.) Resident Involvement: Resident Care Provided Care Provided: Adult Hospital Medicine (Pawan Medley, D.O.)
[2017-12-26 15:22] VITALS: BP 124/78; PULSE 71; TEMP 36.5; O2SAT 96
--- NOTE | 2017-12-26 17:33 | ECHOCARDIOGRAM REPORT ---
*NOTICE TO RECEIVING CONSTITUTION PARTY AGENCY This information is strictly Confidential and protected under [place] law. [place] law prohibits you from making any further disclosure of this information unless further disclosure is expressly permitted by the written consent of the person to whom it pertains or is authorized by law. A general authorization for the release of medical or other information is not sufficient for this purpose. Hospital accepts no responsibility if the information is made available to any other person, INCLUDING THE PATIENT. Interpretation Summary * Name: QUINTEN LAINEZ Study Date: 12/26/2017 01:01 PM BP: 98/65 mmHg * Patient Location: C.2T\S\S230\S\1 HR: 72 * : 1955 (M/d/yyyy) Gender: Male Height: 64 in * Age: 62 yrs Ethnicity: [place] Weight: 190 lb * Ordering Physician: Silvana Goldstein * Referring Physician: Self, Referred * Performed By: Denisha Parson RDCS * * Reason For Study: Chest Pain * BSA: 1.9 m2 * -- Conclusions -- * 1. Normal left ventricular size and systolic function. EF 60-65%. No definite regional wall motion abnormalities. Mild concentric left ventricular hypertrophy. Type 1 diastolic dysfunction. * 2. Aortic valve sclerosis mild, without significant aortic valvular stenosis. * 3. Normal estimated right ventricular systolic pressure. * 4. Technically difficult study, enhanced with IV Definity. * 5. No prior study available for comparison. Procedure Details * A complete two-dimensional transthoracic echocardiogram was performed (2D, M-mode, Doppler and color flow Doppler). * A contrast injection of Definity was performed to improve assessment of LV function. * Contrast was injected into an intravenous site in the left arm. * One vial of Definity ultrasound contrast was diluted in normal saline to a total volume of 10 ml. A total of '1' ml of solution was administered during imaging. * Lot # [id number] of Definity utilized for procedure. * Expiration date UL. Left Ventricle * Normal left ventricular size and systolic function. EF 60-65%. No definite regional wall motion abnormalities. Mild concentric left ventricular hypertrophy. Type 1 diastolic dysfunction. Right Ventricle * The right ventricle is normal in size and function. * The right ventricular systolic function is normal as assessed by tricuspid annular plane systolic excursion (TAPSE) (normal >1.5 cm). Atria * The left atrial size is normal. * Right atrial size is normal. * There is no evidence of atrial septal defect, but resolution does not allow assessment for a patent foramen ovale. Mitral Valve * The mitral valve is grossly normal. * There is no mitral valve stenosis. * There is trace mitral regurgitation. Tricuspid Valve * The tricuspid valve is not well visualized, but is grossly normal. * There is no tricuspid stenosis. * There is mild tricuspid regurgitation. Aortic Valve * The aortic valve is trileaflet. * Aortic valve sclerosis mild, without significant aortic valvular stenosis. * No aortic regurgitation is present. Pulmonic Valve * The pulmonary valve is inadequately visualized, but the Doppler data is adequate for interpretation. * There is no pulmonic valvular stenosis. * Trace pulmonic valvular regurgitation. Great Vessels * The aortic root is normal size. * Normal pulmonary venous flow pattern. Pericardium/Pleural * There is no pericardial effusion. Great Vessels * Top normal IVC size with reduced inspiratory collapse. MMode 2D Measurements and Calculations IVSd 1.2 cm LVIDd 3.6 cm LVIDs 2.7 cm LVPWd 1.2 cm IVS/LVPW 1.1 FS 25.0 % EDV(Teich) 53.9 ml ESV(Teich) 26.8 ml EF(Teich) 50.3 % EDV(cubed) 46.1 ml ESV(cubed) 19.5 ml EF(cubed) 57.7 % LV mass(C)d 139.6 grams LV mass(C)dI 72.9 grams/m\S\2 SV(Teich) 27.1 ml SI(Teich) 14.2 ml/m\S\2 SV(cubed) 26.6 ml SI(cubed) 13.9 ml/m\S\2 Ao root diam 3.7 cm Ao root area 10.8 cm\S\2 ACS 1.9 cm LVAd ap4 27.7 cm\S\2 LVLd ap4 8.5 cm EDV(MOD-sp4) 74.6 ml EDV(sp4-el) 76.8 ml LVAs ap4 13.8 cm\S\2 LVLs ap4 6.4 cm ESV(MOD-sp4) 29.1 ml ESV(sp4-el) 25.0 ml EF(MOD-sp4) 61.0 % EF(sp4-el) 67.5 % LVAd ap2 30.9 cm\S\2 LVLd ap2 8.5 cm EDV(MOD-sp2) 96.7 ml EDV(sp2-el) 95.4 ml LVAs ap2 15.4 cm\S\2 LVLs ap2 6.7 cm ESV(MOD-sp2) 34.4 ml ESV(sp2-el) 29.9 ml EF(MOD-sp2) 64.4 % EF(sp2-el) 68.7 % LVLd %diff -0.04 % EDV(MOD-bp) 84.3 ml LVLs %diff 4.5 % ESV(MOD-bp) 32.2 ml EF(MOD-bp) 61.8 % SV(MOD-sp4) 45.5 ml SI(MOD-sp4) 23.8 ml/m\S\2 SV(MOD-sp2) 62.3 ml SI(MOD-sp2) 32.5 ml/m\S\2 SV(MOD-bp) 52.1 ml SI(MOD-bp) 27.2 ml/m\S\2 SV(sp4-el) 51.8 ml SI(sp4-el) 27.1 ml/m\S\2 SV(sp2-el) 65.5 ml SI(sp2-el) 34.2 ml/m\S\2 Doppler Measurements and Calculations MV E max juana 64.3 cm/sec MV A max juana 99.2 cm/sec MV E/A 0.65 MV dec time 0.20 sec Ao V2 max 126.8 cm/sec Ao max PG 6.4 mmHg Ao max PG (full) 0.93 mmHg LV V1 max PG 5.5 mmHg LV V1 max 117.3 cm/sec PA V2 max 96.6 cm/sec PA max PG 3.7 mmHg PI max juana 110.4 cm/sec PI max PG 4.9 mmHg PI dec slope 131.2 cm/sec\S\2 PI P1/2t 246.5 msec TR max juana 173.7 cm/sec RVSP(TR) 20.1 mmHg RAP systole 8.0 mmHg
--- NOTE | 2017-12-26 17:59 | Cardiology Consultation ---
Cardiology Consultation Date of Consultation: Dec 26, 2017. Requesting Physician: Dr. Mckee Attending Physician: Dr. Mckee Reason for Consultation: chest pain and elevated troponin Pt evaluation today including: conversation w/ patient, physical exam, chart review, lab review, review of studies, review of inpatient medication list, conversation w/ attending (Spoke with Ms. Triston LOCK) History of Present Illness Mr. Mina is a very pleasant 62-year-old gentleman with no known cardiac history who presented to [facility] with chest pain. He has not been seen by PCP for 3 or 4 years. He did have a recent urethral stricture procedure performed in November of 2017. He has not noted any decline in his exercise tolerance. He mowed his lawn yesterday with a push mower in the hot/humid weather. It did make him tired but he had no chest pain or shortness of breath. Although he does not exercise , he remains active. Last night at approximately midnight, while sitting at a club socializing, he developed substernal chest discomfort described as a squeezing that lasted approximately 45 minutes. He became diaphoretic and short of breath. There is no radiation of the pain. He did not have this symptom previously. He received nitroglycerin spray x1 with improvement of his symptoms. A second nitroglycerin spray improved his symptoms even further. He also received fentanyl according to records. He has not had any further chest discomfort. He was found to have elevated creatinine which has improved throughout the hospital stay with IV fluids. He denies melena, hematochezia, hematuria, syncope, near-syncope, palpitations, edema. He currently is chest pain-free. Review of systems: As above in review of systems otherwise negative/ unremarkable. Family History Cancer Hypertension No known premature CAD. Social History Smoking Status: Current Some Day Smoker (1 cigar/day. No cigarettes. ) History of Alcohol Use: No He denies alcohol, drug abuse. He lives with his girlfriend and her son. He has not been . He has no biologic children. 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. He is unaccompanied at the time of our visit. Allergies Coded Allergies: Antihistamines, Diphenhydramine-typ (Verified Adverse Reaction, Unknown, unk, 12/26/17) Medications Reported Home Medications Medications Dose Route/Sig Max Daily Dose Days Date Category No Active Prescriptions or Reported Medications Rx Current Inpatient Medications Medications (Trade) Dose Ordered Sig/Lillian Route Start Time Stop Time Status Last Admin Dose Admin Acetaminophen (Tylenol Tab) 650 mg Q4H PRN PO 12/26/17 02:45 01/25/18 02:44 Al Hydrox/Mg Hydrox/Simethicone (Maalox Max Susp) 15 ml Q4H PRN PO 12/26/17 02:45 01/25/18 02:44 Magnesium Hydroxide (Milk Of Magnesia Susp) 30 ml Q12H PRN PO 12/26/17 02:45 01/25/18 02:44 Zolpidem Tartrate (Ambien Tab) 5 mg HSZ PRN PO 12/26/17 02:45 01/25/18 02:44 Ondansetron HCl (Zofran Inj) 4 mg Q6H PRN IV 12/26/17 02:45 01/25/18 02:44 Nitroglycerin (Nitrostat Tab) 0.4 mg UD PRN SL 12/26/17 02:45 01/25/18 02:44 Morphine Sulfate (MoRPHine SULFATE INJ) 2 mg Q30M PRN IV 12/26/17 02:45 01/09/18 02:44 Aspirin (Ecotrin Tab) 81 mg QAM PO 12/26/17 09:00 01/25/18 08:59 12/26/17 08:03 81 MG Polyethylene (Miralax Powder Packet) 17 gm DAILY PRN PO 12/26/17 02:45 01/25/18 02:44 Atorvastatin Calcium (Lipitor Tab) 40 mg QAM PO 12/26/17 09:00 01/25/18 08:59 12/26/17 08:03 40 MG Heparin Sodium/ Dextrose 500 ml @ 24 mls/hr [id number] IV 12/26/17 04:00 01/25/18 03:59 12/26/17 04:08 24 MLS/HR Physical Exam Vital Signs Past 12 Hours Date Time Temp Pulse Resp B/P (MAP) Pulse Ox O2 Delivery O2 Flow Rate FiO2 12/26/17 15:22 36.5 71 16 124/78 (93) 96 Room Air 12/26/17 11:39 37.0 72 19 98/65 (76) 96 Room Air 12/26/17 08:35 Room Air 12/26/17 07:38 37.0 83 19 109/66 (80) 95 Room Air Gen.: No acute distress. Alert and oriented. HEENT: Anicteric sclera. Neck: No JVD. No bruits. Normal carotid upstrokes bilaterally. Cardiac: PMI was nondisplaced. No ventricular heave. Regular rate and rhythm. Normal S1-S2. No murmurs, rubs, or gallops. Pulmonary: Clear to auscultation bilaterally without wheezes, rales, or rhonchi. Abdomen: Soft, nontender, nondistended, with normoactive bowel sounds. No bruits noted. Extremities: 2+ radial pulses bilaterally; Allens's ok. 2+ posterior tibialis pulses bilaterally. No edema or cyanosis. No palpable cords. Psychiatric: Affect appears appropriate. Chest: Nontender to palpation. Data Laboratory Results: Last 24 Hours Test 12/26/17 00:26 12/26/17 01:46 12/26/17 04:18 12/26/17 04:37 White Blood Count 8.93 K/uL Red Blood Count 5.89 M/uL Hemoglobin 18.4 g/dL Hematocrit 51.4 % Mean Corpuscular Volume 87.3 fL Mean Corpuscular Hemoglobin 31.2 pg Mean Corpuscular Hemoglobin Concent 35.8 g/dl Platelet Count 173 K/uL Mean Platelet Volume 9.4 fL Neutrophils (%) (Auto) 57.2 % Lymphocytes (%) (Auto) 30.1 % Monocytes (%) (Auto) 7.8 % Eosinophils (%) (Auto) 3.9 % Basophils (%) (Auto) 0.2 % Neutrophils # (Auto) 5.10 K/uL Lymphocytes # (Auto) 2.69 K/uL Monocytes # (Auto) 0.70 K/uL Eosinophils # (Auto) 0.35 K/uL Basophils # (Auto) 0.02 K/uL RDW Standard Deviation 40.9 fL RDW Coefficient of Variation 12.8 % Immature Granulocyte % (Auto) 0.8 % Immature Granulocyte # (Auto) 0.07 K/uL Sodium Level 139 mmol/L Potassium Level 3.3 mmol/L Chloride Level 105 mmol/L Carbon Dioxide Level 26 mmol/L Anion Gap 8.0 mmol/L Blood Urea Nitrogen 21 mg/dl Creatinine 1.97 mg/dl Est Creatinine Clear Calc Drug Dose 34.2 ml/min Estimated GFR () 40.4 Estimated GFR (Non- 34.9 BUN/Creatinine Ratio 10.8 Random Glucose 138 mg/dl Calcium Level 8.9 mg/dl Troponin I < 0.015 ng/ml < 0.015 ng/ml Bedside D-Dimer 363 ng/mlFEU Activated Partial Thromboplast Time 25.0 SECONDS Partial Thromboplastin Ratio 1.0 Test 12/26/17 07:50 12/26/17 10:03 12/26/17 13:00 White Blood Count 8.33 K/uL Red Blood Count 4.87 M/uL Hemoglobin 14.6 g/dL Hematocrit 42.3 % Mean Corpuscular Volume 86.9 fL Mean Corpuscular Hemoglobin 30.0 pg Mean Corpuscular Hemoglobin Concent 34.5 g/dl RDW Standard Deviation 40.8 fL RDW Coefficient of Variation 12.7 % Platelet Count 160 K/uL Mean Platelet Volume 9.3 fL Sodium Level 140 mmol/L 139 mmol/L Potassium Level 4.6 mmol/L 4.1 mmol/L Chloride Level 108 mmol/L 110 mmol/L Carbon Dioxide Level 25 mmol/L 23 mmol/L Anion Gap 7.0 mmol/L 6.0 mmol/L Blood Urea Nitrogen 18 mg/dl 15 mg/dl Creatinine 1.48 mg/dl 1.18 mg/dl Est Creatinine Clear Calc Drug Dose 50.0 ml/min 62.7 ml/min Estimated GFR () 57.1 75.1 Estimated GFR (Non- 49.3 64.8 BUN/Creatinine Ratio 12.2 12.5 Random Glucose 214 mg/dl 191 mg/dl Calcium Level 8.4 mg/dl 8.5 mg/dl Magnesium Level 2.5 mg/dl Troponin I 0.082 ng/ml 0.759 ng/ml Triglycerides Level 102 mg/dl Cholesterol Level 175 mg/dl HDL Cholesterol 35 mg/dl LDL Cholesterol, Calculated 120 mg/dl VLDL Cholesterol, Calculated 20 mg/dl Cholesterol/HDL Ratio 5.0 Hepatitis C Antibody Screen NEG Activated Partial Thromboplast Time 47.1 SECONDS Partial Thromboplastin Ratio 1.8 ECG personally reviewed: ECG 12/26/2017 at 1:29 a.m.: Sinus rhythm 77 bpm. ECG 12/26/2017 at 12:48 a.m.: Sinus rhythm 72 bpm. Possible inferior infarct. Echocardiogram 12/26/2017: Normal LV size, wall motion, systolic function. EF 60-65%. Mild LVH. Type 1 diastolic dysfunction. Sclerotic aortic valve. Chest x-ray 12/26/2017 personally reviewed: No infiltrate. Per Radiology, no acute cardiopulmonary findings. Assessment & Plan ASSESSMENT/PLAN: 1. NSTEMI: Troponin is mildly elevated, and within the diagnostic range of myocardial infarction. He did have symptoms concerning for angina and symptoms occurred at rest. Given subjective symptoms and elevated troponin levels, recommended coronary angiography. Risks and benefits were discussed with him. He was made aware that CT surgery is not available at this facility. He would like to think it over. NPO after midnight in case he plans for coronary angiography. There is no urgent indication as long as he remains chest pain- free. Continue aspirin 81 mg daily. Continue heparin drip. Continue high- intensity statin therapy. Will initiate beta-blayne. Trend troponins until peak. 2. Dyslipidemia: HDL is low. LDL is elevated if he truly has CAD. High- intensity statin therapy as above. 3. Angina: Symptoms concerning for angina especially given elevated troponin. Plan as above. 4. Acute renal insufficiency: Renal function has improved with fluid. Per primary service. 5. Disposition: Cardiology will continue to follow. Patient care has been discussed earlier today with Ms. Goldstein of the primary hospitalist service. A call has also been placed to primary attending, Dr. Mckee. Highly complex medical issues. Thank you for allowing me to participate in the care of your patient. Please call for any other questions or concerns. Sincerely, Nahid Garay M.D.
[2017-12-26 19:29] VITALS: BP 112/74; PULSE 74; TEMP 37; O2SAT 94
[2017-12-26] MEDS: METOPROLOL TARTRATE 25 MG TAB PO SCH (20:40)
[2017-12-26 23:32] VITALS: BP 108/65; PULSE 67; TEMP 36.8; O2SAT 95
[2017-12-27] VITALS (15 sets, daily range): BP systolic 106–151; BP diastolic 69–91; PULSE 58–75; TEMP 36.5–37.1; O2SAT 95–98; Ht 162.6 cm; Wt 88.3 kg
[2017-12-27] MEDS: ATORVASTATIN 40 MG TAB PO SCH (07:19)
[2017-12-27] MEDS: METOPROLOL TARTRATE 25 MG TAB PO SCH ×2 (07:19→20:27)
[2017-12-27] MEDS: ASPIRIN 81 MG ECTAB PO SCH (07:19)
[2017-12-27 07:22] LABS: PTT PATIENT 43.6 SECONDS (21.0-31.0)
[2017-12-27 07:48] LABS: CALCIUM 8.4 mg/dl (8.5-10.1); CREATININE 1.24 mg/dl (0.60-1.40)
[2017-12-27] MEDS ORDERED: HEPARIN IV BOLUS 3,000 UNIT in SYRINGE 0 ML IV SCH (08:00)
[2017-12-27] MEDS: HEPARIN 25,000 UNIT/500ML D5W 500 ML IV SCH ×2 (08:28→17:58)
--- NOTE | 2017-12-27 09:05 | Cardiology Follow-Up ---
Subjective Date of Service: Dec 27, 2017. Pt evaluation today including: conversation w/ patient, conversation w/ family (significant other (Jessica)), physical exam, chart review, lab review, review of studies, review of inpatient medication list History of Present Illness Mr. Mina is a very pleasant 62-year-old gentleman who presented with angina and developed elevated troponin levels. He denies chest pain, shortness of breath, syncope, near-syncope, palpitations, edema, or bleeding. He would like to undergo cardiac catheterization. His fiancee, Jessica, was present at the bedside. Questions were answered and cardiac catheterization, including risk and benefits, were discussed with them once more. Medications Current Inpatient Medications Medications (Trade) Dose Ordered Sig/Lillian Route Start Time Stop Time Status Last Admin Dose Admin Acetaminophen (Tylenol Tab) 650 mg Q4H PRN PO 12/26/17 02:45 01/25/18 02:44 Al Hydrox/Mg Hydrox/Simethicone (Maalox Max Susp) 15 ml Q4H PRN PO 12/26/17 02:45 01/25/18 02:44 Magnesium Hydroxide (Milk Of Magnesia Susp) 30 ml Q12H PRN PO 12/26/17 02:45 01/25/18 02:44 Zolpidem Tartrate (Ambien Tab) 5 mg HSZ PRN PO 12/26/17 02:45 01/25/18 02:44 Ondansetron HCl (Zofran Inj) 4 mg Q6H PRN IV 12/26/17 02:45 01/25/18 02:44 Nitroglycerin (Nitrostat Tab) 0.4 mg UD PRN SL 12/26/17 02:45 01/25/18 02:44 Morphine Sulfate (MoRPHine SULFATE INJ) 2 mg Q30M PRN IV 12/26/17 02:45 01/09/18 02:44 Aspirin (Ecotrin Tab) 81 mg QAM PO 12/26/17 09:00 01/25/18 08:59 12/27/17 07:19 81 MG Polyethylene (Miralax Powder Packet) 17 gm DAILY PRN PO 12/26/17 02:45 01/25/18 02:44 Atorvastatin Calcium (Lipitor Tab) 40 mg QAM PO 12/26/17 09:00 01/25/18 08:59 12/27/17 07:19 40 MG Heparin Sodium/ Dextrose 500 ml @ 27 mls/hr [id number] IV 12/26/17 04:00 01/25/18 03:59 12/27/17 08:28 27 MLS/HR Metoprolol Tartrate (Lopressor Tab) 25 mg BID PO 12/26/17 21:00 01/25/18 20:59 12/27/17 07:19 25 MG Heparin Sodium (Porcine) 3000 unit/Syringe 3 ml @ 10 mls/min TODAY@0800 IV 12/27/17 08:00 12/27/17 10:00 12/27/17 08:27 10 MLS/MIN Objective Vital Signs Past 12 Hours Date Time Temp Pulse Resp B/P (MAP) Pulse Ox O2 Delivery O2 Flow Rate FiO2 12/27/17 08:00 97 Room Air 12/27/17 06:53 36.9 65 18 131/85 (100) 97 Room Air 12/27/17 03:50 36.7 61 18 127/74 (91) 98 Room Air 12/26/17 23:32 36.8 67 18 108/65 (79) 95 Room Air Last Recorded Weight-Kilograms: 88.200 Intake & Output 12/26/17 12/27/17 12/28/17 08:00 08:00 08:00 Intake Total 3200 ml Output Total 350 ml Balance 2850 ml Physical Exam Gen.: No acute distress. Alert and oriented. HEENT: Anicteric sclera. Neck: No JVD. No bruits. Normal carotid upstrokes bilaterally. Cardiac: No ventricular heave. Regular. Normal S1-S2. No murmurs, rubs, or gallops. Pulmonary: Clear to auscultation bilaterally without wheezes, rales, or rhonchi. Abdomen: Soft, nontender, nondistended, with normoactive bowel sounds. No bruits noted. Extremities: No edema or cyanosis. Psychiatric: Affect appears appropriate. Data Laboratory Results: Last 24 Hours Test 12/26/17 10:03 12/26/17 13:00 12/26/17 19:27 12/27/17 00:39 Activated Partial Thromboplast Time 47.1 SECONDS Partial Thromboplastin Ratio 1.8 Sodium Level 139 mmol/L Potassium Level 4.1 mmol/L Chloride Level 110 mmol/L Carbon Dioxide Level 23 mmol/L Anion Gap 6.0 mmol/L Blood Urea Nitrogen 15 mg/dl Creatinine 1.18 mg/dl Est Creatinine Clear Calc Drug Dose 62.7 ml/min Estimated GFR () 75.1 Estimated GFR (Non- 64.8 BUN/Creatinine Ratio 12.5 Random Glucose 191 mg/dl Calcium Level 8.5 mg/dl Troponin I 0.759 ng/ml 2.790 ng/ml 3.920 ng/ml Test 12/27/17 06:48 12/27/17 07:01 Sodium Level 142 mmol/L Potassium Level 4.0 mmol/L Chloride Level 110 mmol/L Carbon Dioxide Level 26 mmol/L Anion Gap 6.0 mmol/L Blood Urea Nitrogen 15 mg/dl Creatinine 1.24 mg/dl Est Creatinine Clear Calc Drug Dose 60.3 ml/min Estimated GFR () 70.8 Estimated GFR (Non- 61.1 BUN/Creatinine Ratio 12.4 Random Glucose 139 mg/dl Calcium Level 8.4 mg/dl Troponin I 3.920 ng/ml Activated Partial Thromboplast Time 43.6 SECONDS Partial Thromboplastin Ratio 1.7 Telemetry personally reviewed. No arrhythmia. Chart reviewed. Assessment and Plan ASSESSMENT/PLAN: 1. NSTEMI: Troponin has peaked at 3.92. No further angina. Continue beta- blayne. Continue aspirin 81 mg daily. Continue heparin drip and high- intensity statin therapy. Coronary angiography pending later today. Renal function has stabilized. Repeat ECG. 2. Dyslipidemia: HDL is low. LDL is elevated if he truly has CAD. Continue high-intensity statin therapy. 3. Angina: No further angina. Continue current medical therapy while awaiting coronary angiography. 4. Acute renal insufficiency: Renal function has improved with fluid. Per primary service. 5. Disposition: Cardiology will continue to follow. Continue telemetry for a total of at least 48 hours following myocardial infarction.
--- NOTE | 2017-12-27 11:37 | Pre Sedation Assessment ---
Pre Sedation Assessment General Date of Sedation: Dec 27, 2017. Vital Signs Past 12 Hours Date Time Temp Pulse Resp B/P (MAP) Pulse Ox O2 Delivery O2 Flow Rate FiO2 12/27/17 08:00 97 Room Air 12/27/17 06:53 36.9 65 18 131/85 (100) 97 Room Air 12/27/17 03:50 36.7 61 18 127/74 (91) 98 Room Air Review Cardiovascular: regular rate, rhythm Lungs: lungs clear Pre-Sedation Airway Assessment Oral Cavity: WNL Mallampati Classification: Class III ASA Classification: Class III NPO Status Date of Last Intake of Fluids: Dec 26, 2017 Time of Last Intake of Fluids: 23:00 Date of Last Intake of Solids: Dec 26, 2017 Time of Last Intake of Solids: 23:00 Procedure Planning Contraindications for Sedation: None Current Medications Reviewed: Yes Notes The planned sedation has been discussed with the patient. Informed Consent was obtained. I have identified the patient, determined the appropriateness of sedation and have assessed the patient immediately prior to the procedure. All medicine(s) and interventions are by my order.
[2017-12-27] MEDS ORDERED: FENTANYL CITRATE INJ 50 MCG/1 ML 2 ML VIAL ONE (11:53)
[2017-12-27] MEDS ORDERED: MIDAZOLAM HCL 1 MG/ML 2ML VIAL ONE (11:53)
[2017-12-27] MEDS ORDERED: NiCARDipine HCL INJ 2.5 MG/ML 10 ML AMP ONE (11:53)
[2017-12-27] MEDS ORDERED: HEPARIN SOD (PORCINE) 1000 UNIT/ML 10 ML VIAL ONE (11:53)
[2017-12-27] MEDS ORDERED: NITROGLYCERIN/D5W 100MCG/ML 20ML SYR ONE (11:54)
--- NOTE | 2017-12-27 12:51 | Cardiology Procedure Brief Nt ---
Preliminary Cardiology Note Procedure Date Dec 27, 2017. Pre-Procedure Diagnosis NSTEMI Post-Procedure Diagnosis Severe CAD involving LAD and RCA. Procedure(s) Performed Coronary angiography Left heart catheterization Global Regulatory Affairs Manager Jarrod Remedial Reading Teacher(s) Valerio Estimated Blood Loss < 25 ml Preliminary Findings Severe proximal to mid LAD CAD. Occluded RCA with left to right collaterals. Recommendations Consider multivessel CAD. Interventional cardiology has recommended transfer to facility with CT surgery availability. Specimens none Complication(s) None Disposition PCU
--- NOTE | 2017-12-27 12:51 | Post Sedation Assessment ---
Post Sedation Assessment General Date of Sedation Dec 27, 2017. Vital Signs: Vital Signs Past 12 Hours Date Time Temp Pulse Resp B/P (MAP) Pulse Ox O2 Delivery O2 Flow Rate FiO2 12/27/17 11:03 36.8 58 18 113/74 (87) 98 Room Air 12/27/17 08:00 97 Room Air 12/27/17 06:53 36.9 65 18 131/85 (100) 97 Room Air 12/27/17 03:50 36.7 61 18 127/74 (91) 98 Room Air Post Procedure Recovery Score Activity: (2) Moves 4 extremities * Respiration: (2) Deep breath/cough Circulation: (2) +/-20% PreAnes Value Consciousness: (2) Fully Awake Oxygen Saturation: (2) > 92% On Room Air Post Anesthesia Score: 10 Discharge Sedation Level of Care: Fast Track Phase II Post Sedation Plan On clinical assessment, the patient appears to have tolerated the sedation without complications. Patient is recovering as anticipated. Patient will continue to be monitored by nursing and may be discharged when sedation discharge criteria are met per below protocol. Upon Completions of procedure and additional 15 minutes continue every 5 minute vital signs and the P.A.R. score; then discharge to a Phase I or Fast Track to Phase II per the following guidelines: * Discharge Patient to appropriate Phase II area if PAR is 8 or greater or return to pre- procedure baseline. The post - procedure orders will be as directed. * If PAR score is less than 8 or not return to pre-procedure baseline then patient will follow Phase I monitoring till PAR is reached for Phase II. The Phase I may be done in procedure room or may call to secure a Phase I area. * If naloxone or flumazenil are used for reversal, hold in Phase I for an additional 60 -120 minutes before discharge to Phase II. Please call the Sedation Physician to re-evaluate and complete post-note for discharge to Phase II area. Do NOT discharge from procedure sedation or Phase 1 until post- sedation evaluation note is complete by procedure /sedation MD Sedation Discharge Instructions to be given to the patient at discharge to home.
[2017-12-27] MEDS ORDERED: SODIUM CHLORIDE 0.9% 1000ML 1,000 ML IV SCH (13:05)
--- NOTE | 2017-12-27 13:41 | Cardiac Catheterization ---
Procedure Note Procedure Date Dec 27, 2017. Pre-Procedure Diagnosis Non STEMI AUC Score 9 Post-Procedure Diagnosis Severe CAD Procedure(s) Performed Coronary Angiography, Left Heart Cath Maintenance Craftsman Dr. Garay Weight Loss Physician(s) Valerio Estimated Blood Loss < 25 ml Medication(s) Fentanyl, Heparin, Nicardipine, Versed, Lidocaine 1% Summary of Findings Coronary angiography: 1. Left main coronary artery: The LMCA is large in caliber, but very short in length. No significant CAD. 2. Left anterior descending: The LAD has a proximal hazy stenosis of 50-70% followed by a short normal appearing segment from which a small D1 originates. Early mid LAD 70%, involving the bifurcation of small D2 vessel. This is followed by normal/perhaps aneurysmal segment and another mid LAD stenosis of 70 -80%. Distally the LAD is a small caliber vessel. 3. Circumflex: The circumflex is a large caliber vessel. Proximal circumflex 20%. Medium caliber OM1. Large OM2 with mid 30% stenosis. The distal AV groove circumflex is medium in caliber. 4. Right coronary artery: The RCA is dominant. Proximal RCA 99% followed by mid RCA 100% occlusion. The PL, PDA, and distal RCA fills via [id number] collaterals. Left heart catheterization: 1. Left ventriculography was not performed. 2. No significant aortic stenosis. 3. Mildly elevated LVEDP; 17mmHg. Sedation start time: 12:11 p.m. Sedation end time: 12:32 p.m. Procedural notes: 1. Cardiac catheterization was performed via the right radial artery with 6 [place] JL 3.5 and JR4 diagnostic catheters, without known complication. Impression: 1. Severe CAD involving the LAD and RCA. 2. Mqll-uj-oizdh collaterals. 3. Nonobstructive CAD within the circumflex system. 4. Mildly elevated LVEDP. 5. No aortic stenosis. Plan: 1. Images were reviewed with Interventional Cardiology, Dr. Calloway, who recommended evaluation for higher risk PCI by interventional Cardiology at a facility with CT surgery availability. 2. Resume heparin drip per protocol, without bolus, once hemostasis has been achieved. 3. Optimize medical therapy. Hemodynamics Rest Ao: 135/66 Final Ao: 115/69 LV: 112/8/17 Recommendations PCI without planned CABG Specimens None Radiation Exposure (mGy) 925 mGy. Fluoro time 2.9 min. Contrast (mls) 45 ml Procedural Complication(s) None Disposition PCU ACC Data Cardiac Status Clinical evaluation leading to the procedure CAD Presntation: Non STEMI Anginal Classification: CCS IV Heart Failure: No Cardiogenic Shock w/in 24Hrs: No Cardiac Arrest w/in 24Hrs: No Imaging studies past 6 months: Yes (echo) Stress studies past 6 months: No Standard Exercise Stress Test: No Stress Echocardiogram: No Stress Testing w/SPECT MPI: No Cardiac CTA: No Coronary Anatomy Dominant: Right Left Main (% Stenosis): Normal LAD (% Stenosis): Proximal (50-70%), Mid (early mid 70% followed by 70-80%.) D1 (% Stenosis): Normal D2 (% Stenosis): Normal D3 (% Stenosis): Normal Circumflex (% Stenosis): Proximal (20%) OM1 (% Stenosis): Normal OM2 (% Stenosis): Mid (30%) RCA (% Stenosis): Proximal (99%), Mid (100%. Left to right collaterals fills PL , PDA and distal RCA.) Left Ventricular Angiography EF (%): n/a Diagnostic Physician's Name: Brody Garay MD Status: Elective Closure Device Percutaneous Entry Location: Radial Closure Device: Radial Band Recommendations: PCI without planned CABG
--- NOTE | 2017-12-27 13:42 | Consultant Recommendations ---
Technology Coordinator Recommendations Date of Service Dec 27, 2017. Technology Coordinator Recommendations ACTIVITY RECOMMENDATIONS: Excess manipulation of the wrist should be avoided for the next 24-48 hours. * No lifting over 2 pounds (approximately a 1/2 gallon of milk) with the utilized arm for 24 hours. * No strenuous activity such as bowling or tennis for 3 days. * Keep the site of the procedure covered with a bandage for 24 hours. *You may shower the day after the procedure. Do not take a tub bath or submerge the puncture site in water for the next 3 days. *Do not operate any motorized equipment for 3 days. SPECIAL CARE INSTRUCTIONS: The site may be slightly bruised and sore following your procedure. Should any of the following occur, contact the Dr. who performed your procedure. 1. Redness/inflammation, swelling, chills, or fever, or colored drainage at procedure site within 3-7 days after your procedure. 2. Coldness, discoloration, ongoing numbness, severe pain, or swelling. Expect mild tingling of hand and tenderness at the puncture site for up to three days. If this persists beyond three days, or other symptoms develop, notify the Dr. who performed your procedure. BLEEDING: If the procedure site on your wrist begins to bleed, do not panic 1. Place 1 or 2 fingers firmly just slightly above the insertion site to stop the bleeding. You may be able to feel your pulse as you hold pressure. 2. Lift your finger after 5 minutes to see if the bleeding has stopped. 3. Once the bleeding has stopped, gently wipe the wrist area clean with a bandage. * If the bleeding from your wrist does not stop after 10 minutes, or if there is a large amount of bleeding or spurting, call 911 (do not drive yourself to the hospital). SKIN IRRITATION: * You may experience some redness and/or swelling in the area where radiation was administered. If any skin irritation occurs, please contact your family physician. FOLLOW UP VISIT: Keep any scheduled doctor appointments.
--- NOTE | 2017-12-27 14:24 | Discharge Instructions ---
Discharge Instructions Date of Service Dec 27, 2017. Admission Reason for Admission: Arf, Chest Pain Discharge Discharge Diagnosis / Problem: Severe CAD Discharge Goals Goal(s): Decrease discomfort, Improve function, Increase independence Activity Recommendations Activity Level: Up Ad Evangelina . Additional Information Patient informed of condition: Yes Advance Directives: No DNR: No Level of Care: Other Communicable Disease: No Prognosis: Stable Negron Catheter: No Instructions / Follow-Up Instructions / Follow-Up 62 y/o M without a significant medical history. Developed central CP, nonradiating, associated with SOB, diaphoresis and nausea. The pain was relieved by NTG and Fentanyl on arrival to the ER. Initial troponin is negative , An EKG shows flattening of T waves in lateral leads as compared to a repeat EKG obtained after his CP had resolved. Initial labs are notable for ARF with a creatinine of 2.0. leukocytosis and mild hypokalemia. He denies a history of CKD. He recently had surgery for a urethral stricture and denies any dysuria over the past few wks. NSTEMI: - Remains CP since initial episode. No further episodes of syncope/near syncope. Has remained NSR on monitor. Troponins peaked at 3.9 with heart catheterization performed on 12/27 which revealed severe CAD involving LAD and RCA , Left to right collaterals, nonobstructive CAD within the circumflex system - Given his level of stenosis he was deemed too high risk for stent placement in our facility by our document image technician. Recommendations for PCI by interventional cardiology at a facility with CT surgery available - Plan to resume heparin gtt after homeostasis obtained after catheterization. Drip initiated on 12/26 with last PTT at 43.6 which was obtained at 0700 on 12/27 - During admission he was initiated on ASA 81 mg daily, Atorvastatin 40 mg daily , and Lopressor 25 mg BID and has tolerated this regimen without issue Acute Kidney Injury - Pre-Renal: - He initially presented with Cr of 1.9 which is now normalized at 1.24 with IVF administration - this was likely pre-renal as he was out mowing his lawn the day before admission - He did have an ureteral stricture dilation approx. 3 weeks ago by [facility] - no signs of obstructive cause to explain acute injury Current Hospital Diet Patient's current hospital diet: AHA Diet (Heart Healthy) Discharge Diet Recommended Diet: AHA Diet (Heart Healthy) Pending Studies Studies pending at discharge: no Physician Orders On Transfer POL Discussion: Not Applicable Laboratory Results Hemoglobin A1c Test 12/27/17 13:25 Range/Units Lipid Panel Test 12/26/17 07:50 Range/Units Triglycerides Level 102 0-150 mg/dl Cholesterol Level 175 0-200 mg/dl HDL Cholesterol 35 mg/dl Cholesterol/HDL Ratio 5.0 LDL Cholesterol, Calculated 120 mg/dl Medical Emergencies . Who to Call and When: Medical Emergencies: If at any time you feel your situation is an emergency, please call 911 immediately. . Non-Emergent Contact Non-Emergency issues call your: Primary Care Provider Call Non-Emergent contact if: you have a fever, your pain is concerning you, you have any medication questions . . "Provider Documentation" section prepared by Silvana Goldstein. . Civil Project Engineer Recommendations Civil Project Engineer Recommendations: ACTIVITY RECOMMENDATIONS: Excess manipulation of the wrist should be avoided for the next 24-48 hours. * No lifting over 2 pounds (approximately a 1/2 gallon of milk) with the utilized arm for 24 hours. * No strenuous activity such as bowling or tennis for 3 days. * Keep the site of the procedure covered with a bandage for 24 hours. *You may shower the day after the procedure. Do not take a tub bath or submerge the puncture site in water for the next 3 days. *Do not operate any motorized equipment for 3 days. SPECIAL CARE INSTRUCTIONS: The site may be slightly bruised and sore following your procedure. Should any of the following occur, contact the Dr. who performed your procedure. 1. Redness/inflammation, swelling, chills, or fever, or colored drainage at procedure site within 3-7 days after your procedure. 2. Coldness, discoloration, ongoing numbness, severe pain, or swelling. Expect mild tingling of hand and tenderness at the puncture site for up to three days. If this persists beyond three days, or other symptoms develop, notify the Dr. who performed your procedure. BLEEDING: If the procedure site on your wrist begins to bleed, do not panic 1. Place 1 or 2 fingers firmly just slightly above the insertion site to stop the bleeding. You may be able to feel your pulse as you hold pressure. 2. Lift your finger after 5 minutes to see if the bleeding has stopped. 3. Once the bleeding has stopped, gently wipe the wrist area clean with a bandage. * If the bleeding from your wrist does not stop after 10 minutes, or if there is a large amount of bleeding or spurting, call 911 (do not drive yourself to the hospital). SKIN IRRITATION: * You may experience some redness and/or swelling in the area where radiation was administered. If any skin irritation occurs, please contact your family physician. FOLLOW UP VISIT: Keep any scheduled doctor appointments. Core Measure Problem Core Measures: AMI AMI Core Measures Reason no ASA as I/P: Treatment provided - N/A Reason no ASA at D/C: Treatment provided - N/A Reason no statin as I/P: Treatment provided - N/A Reason no statin at D/C: Treatment provided - N/A
[2017-12-27 14:28] LABS: HEMOGLOBIN A1C 7.3 % (4.5-5.6)
[2017-12-27] MEDS ORDERED: DEXTROSE 50% 50 ML SYR IV PRN (15:30)
[2017-12-27] MEDS ORDERED: GLUCOSE 10 TABS/TUBE PO PRN (15:30)
[2017-12-27] MEDS ORDERED: GLUCAGON FOR INJ 1 MG VIAL SQ PRN (15:30)
[2017-12-27] MEDS ORDERED: GLUCOSE 40% GEL 15 GM TUBE PO PRN (15:30)
[2017-12-27] MEDS ORDERED: CARBOHYDRATES FOR HYPOGLYCEMIA PO PRN (15:30)
[2017-12-27 15:36] LABS: PTT PATIENT 33.6 SECONDS (21.0-31.0)
--- NOTE | 2017-12-27 15:54 | Hospitalist Progress Note ---
Hospitalist Progress Note Date of Service Dec 27, 2017. Subjective Pt evaluation today including: conversation w/ patient, conversation w/ family , physical exam, chart review, lab review, review of studies, conversation w/ independent marketing consultant (Dr. Garay), review of inpatient medication list Patient seen and evaluated. Had cath today with severe LAD/RCA CAD which he is too high risk for stenting here without CT surgery back-up. Patient remains CP free and NSR on monitor. Troponin peaked at 3.9 and trending down. Heparin gtt will be restarted once hemostasis obtained at cath insertion site. Discussed with Dr. Garay and Kamryn. Patient will be accepted in transfer tomorrow to [facility] for high risk PCI vs other forms of revascularization. Constitutional: No fever, No chills Respiratory: No cough, No shortness of breath Cardiovascular: No chest pain, No palpitations Abdomen: No pain, No nausea, No vomiting, No diarrhea, No constipation Musculoskeletal: No calf pain Male : No dysuria Heme: No abnormal bleeding/bruising Skin: No rash Medications Current Inpatient Medications Medications (Trade) Dose Ordered Sig/Lillian Route Start Time Stop Time Status Last Admin Dose Admin Acetaminophen (Tylenol Tab) 650 mg Q4H PRN PO 12/26/17 02:45 01/25/18 02:44 Al Hydrox/Mg Hydrox/Simethicone (Maalox Max Susp) 15 ml Q4H PRN PO 12/26/17 02:45 01/25/18 02:44 Magnesium Hydroxide (Milk Of Magnesia Susp) 30 ml Q12H PRN PO 12/26/17 02:45 01/25/18 02:44 Zolpidem Tartrate (Ambien Tab) 5 mg HSZ PRN PO 12/26/17 02:45 01/25/18 02:44 Ondansetron HCl (Zofran Inj) 4 mg Q6H PRN IV 12/26/17 02:45 01/25/18 02:44 Nitroglycerin (Nitrostat Tab) 0.4 mg UD PRN SL 12/26/17 02:45 01/25/18 02:44 Morphine Sulfate (MoRPHine SULFATE INJ) 2 mg Q30M PRN IV 12/26/17 02:45 01/09/18 02:44 Aspirin (Ecotrin Tab) 81 mg QAM PO 12/26/17 09:00 01/25/18 08:59 12/27/17 07:19 81 MG Polyethylene (Miralax Powder Packet) 17 gm DAILY PRN PO 12/26/17 02:45 01/25/18 02:44 Atorvastatin Calcium (Lipitor Tab) 40 mg QAM PO 12/26/17 09:00 01/25/18 08:59 12/27/17 07:19 40 MG Heparin Sodium/ Dextrose 500 ml @ 27 mls/hr [id number] IV 12/26/17 04:00 01/25/18 03:59 12/27/17 08:28 27 MLS/HR Metoprolol Tartrate (Lopressor Tab) 25 mg BID PO 12/26/17 21:00 01/25/18 20:59 12/27/17 07:19 25 MG Sodium Chloride 1,000 ml @ 125 mls/hr Q8H IV 12/27/17 13:05 12/27/17 16:05 12/27/17 13:35 125 MLS/HR Insulin Aspart (novoLOG ASPART) SLIDING SCALE If C... ACHS SC 12/27/17 16:15 01/26/18 16:14 Glucose (Glucose 40% Gel) 15-30 GRAMS 15 GRAMS... UD PRN PO 12/27/17 15:30 01/26/18 15:29 Glucose (Glucose Chew Tab) 4-8 Tablets 4 Tabl... UD PRN PO 12/27/17 15:30 01/26/18 15:29 Dextrose (Dextrose 50% 50ML Syringe) 25-50ML 25ML FOR ... UD PRN IV 12/27/17 15:30 01/26/18 15:29 Glucagon (Glucagon Inj) 1 mg UD PRN SQ 12/27/17 15:30 01/26/18 15:29 Carbohydrates (Carbohydrates For Hypoglycemia) 15-30 GRAMS 15 grams if BSG 54-69... UD PRN PO 12/27/17 15:30 01/26/18 15:29 Objective Vital Signs Date Time Temp Pulse Resp B/P (MAP) Pulse Ox O2 Delivery O2 Flow Rate FiO2 12/27/17 14:30 66 18 107/73 (84) 96 Room Air 12/27/17 14:00 70 18 115/75 (88) 96 Room Air 12/27/17 13:44 69 18 106/77 (87) 97 Room Air 12/27/17 13:30 68 18 113/69 (84) 96 Room Air 12/27/17 13:15 36.6 72 18 112/79 (90) 95 Room Air 12/27/17 12:47 60 18 120/79 (93) 99 Room Air 12/27/17 12:32 60 18 123/79 (94) 99 Room Air 12/27/17 11:03 36.8 58 18 113/74 (87) 98 Room Air 12/27/17 08:00 97 Room Air 12/27/17 06:53 36.9 65 18 131/85 (100) 97 Room Air 12/27/17 03:50 36.7 61 18 127/74 (91) 98 Room Air 12/26/17 23:32 36.8 67 18 108/65 (79) 95 Room Air 12/26/17 20:00 Room Air 12/26/17 19:29 37.0 74 20 112/74 (87) 94 Room Air Physical Exam General Appearance: WD/WN, no apparent distress Eyes: sclerae normal ENT: hearing grossly normal Neck: supple, no JVD, trachea midline Respiratory/Chest: lungs clear, normal breath sounds, no respiratory distress, no accessory muscle use Cardiovascular: regular rate, rhythm, no gallop, no murmur Abdomen: normal bowel sounds, non tender, soft Extremities: no pedal edema, no calf tenderness, + pertinent finding (cath bracelet to R wrist) Neurologic/Psychiatric: alert, oriented x 3 Skin: normal color, warm/dry Laboratory Results Last 24 Hours Test 12/26/17 19:27 12/27/17 00:39 12/27/17 06:48 12/27/17 07:01 Troponin I 2.790 ng/ml 3.920 ng/ml 3.920 ng/ml Sodium Level 142 mmol/L Potassium Level 4.0 mmol/L Chloride Level 110 mmol/L Carbon Dioxide Level 26 mmol/L Anion Gap 6.0 mmol/L Blood Urea Nitrogen 15 mg/dl Creatinine 1.24 mg/dl Est Creatinine Clear Calc Drug Dose 60.3 ml/min Estimated GFR () 70.8 Estimated GFR (Non- 61.1 BUN/Creatinine Ratio 12.4 Random Glucose 139 mg/dl Calcium Level 8.4 mg/dl Activated Partial Thromboplast Time 43.6 SECONDS Partial Thromboplastin Ratio 1.7 Test 12/27/17 12:20 12/27/17 13:25 12/27/17 15:17 Kaolin Activated Coagulation Time 147 SECONDS Estimated Average Glucose 163 mg/dl Hemoglobin A1c 7.3 % Troponin I 2.120 ng/ml Activated Partial Thromboplast Time 33.6 SECONDS Partial Thromboplastin Ratio 1.3 Assessment and Plan 62 y/o M without a significant medical history. Developed central CP, nonradiating, associated with SOB, diaphoresis and nausea. The pain was relieved by NTG and Fentanyl on arrival to the ER. Initial troponin is negative , An EKG shows flattening of T waves in lateral leads as compared to a repeat EKG obtained after his CP had resolved. Initial labs are notable for ARF with a creatinine of 2.0. leukocytosis and mild hypokalemia. He denies a history of CKD. He recently had surgery for a urethral stricture and denies any dysuria over the past few wks. 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 Garay - plan to transfer to [facility] tomorrow for high risk PCI vs other revascularization T2DM: A1c 7.3 - Will place SSI at this time - will need to address treatment - likely can initiate on oral medications Acute Kidney Injury - Pre-Renal: RESOLVED - Had ureteral stricture repair approx. [address] Jackson - no issues urinary mcgrath - given the improvement with fluids this was likely pre- renal and no signs of obstruction at this time but will continue to monitor DVT Prophylaxis: Heparin gtt Code Status: FULL RESUSCITATION Disposition: [facility] transfer tomorrow for high risk PCI vs other revascularization Continued [facility] stay due to: other (need heart cath vs CABG) Discharge planning: acute transfer
[2017-12-27] MEDS: INSULIN ASPART 100 UNITS/ML 3 ML PEN SC SCH ×2 (17:04→20:28)
[2017-12-27] MEDS: DOCUSATE SODIUM 100 MG CAP PO SCH (20:26)
[2017-12-28] VITALS (8 sets, daily range): BP systolic 109–133; BP diastolic 66–88; PULSE 58–98; TEMP 36.4–37.2; O2SAT 93–98
[2017-12-28 00:42] LABS: PTT PATIENT 43.8 SECONDS (21.0-31.0)
[2017-12-28] MEDS ORDERED: HEPARIN IV BOLUS 3,000 UNIT in SYRINGE 0 ML IV ONE (01:00)
[2017-12-28] MEDS: HEPARIN 25,000 UNIT/500ML D5W 500 ML IV SCH ×2 (01:35→18:09)
[2017-12-28] MEDS: INSULIN ASPART 100 UNITS/ML 3 ML PEN SC SCH ×4 (07:00→20:36)
[2017-12-28 07:22] LABS: HEMATOCRIT 43.6 % (42-52); HEMOGLOBIN 15.2 g/dL (14.0-18.0); MEAN CELL VOLUME 87.2 fL (80-100); MEAN CORPUSCULAR HEMOGLOBIN 30.4 pg (25-34); MEAN CORPUSCULAR HGB CONC 34.9 g/dl (32-36); MEAN PLATELET VOLUME 9.7 fL (7.4-10.4); PLATELET COUNT 129 K/uL (130-400); RED CELL DISTRIBUTION WIDTH CV 13.1 % (11.5-14.5); RED CELL DISTRIBUTION WIDTH SD 41.6 fL (36.4-46.3); WHITE BLOOD COUNT 6.83 K/uL (4.8-10.8)
[2017-12-28 07:56] LABS: CALCIUM 8.7 mg/dl (8.5-10.1); CREATININE 1.15 mg/dl (0.60-1.40); POTASSIUM 4.1 mmol/L (3.5-5.1)
[2017-12-28 08:01] LABS: PTT PATIENT 73.9 SECONDS (21.0-31.0)
[2017-12-28] MEDS: ASPIRIN 81 MG ECTAB PO SCH (08:51)
[2017-12-28] MEDS: ATORVASTATIN 40 MG TAB PO SCH (08:51)
[2017-12-28] MEDS: METOPROLOL TARTRATE 25 MG TAB PO SCH ×2 (08:51→20:08)
[2017-12-28] MEDS: DOCUSATE SODIUM 100 MG CAP PO SCH ×2 (08:53→20:08)
--- NOTE | 2017-12-28 09:41 | Cardiology Progress Note ---
Cardiology Progress Note Date of Service Dec 28, 2017. (Pawan Medley, Elpidio.O.) Cardiology Progress Note This is a Resident note. 62 y/o M with no significant PMH on hospital day #2, s/p cath 12/27 (severe CAD involving LAD and RCA). Today, he was found in bed resting comfortably, A&Ox3 in no acute distress. At present, pt has no acute concerns or complaints. Had no acute overnight events, but stated he has difficulty sleeping overnight due to being awoken by noises and nurse checks. No issues with R wrist. Denies N/V/F , bowel/bladder issues, CP, SOB, syncope, near syncope, palpitations, edema. As per tele, no overnight events. VSS Labs: Trops (1.5, trending down) Otherwise unremarkable. PE normal 1) NSTEMI - not currently in CP. NSR on monitor. -trops are trending down -too high risk for stent placement here, will be transferred to [facility] after bed placement today. -continue ASA, high intensity statin -follow d/c instructions. F/u in office (appt made already) (Pawan Medley, D.O.) Addendum by Cardiology attending: This is family practice resident note. Please see my note under separate cover for cardiology consultation/note. (Brody Garay MD)
--- NOTE | 2017-12-28 13:35 | Cardiology Follow-Up ---
Subjective Date of Service: Dec 28, 2017. Pt evaluation today including: conversation w/ patient, conversation w/ family (brother), physical exam, chart review, lab review, review of studies, review of inpatient medication list History of Present Illness Mr. Mina is a very pleasant 62-year-old gentleman who presented angina and NSTEMI. He denies any further angina, shortness of breath, syncope, near-syncope, palpitations, or edema. He denies bleeding. He underwent cardiac catheterization yesterday which demonstrated occluded RCA with [id number] collaterals, and proximal to mid LAD CAD as well. Interventional Cardiology has recommended higher risk PCI and therefore arrangements were being made for transfer to [facility]. He is pending bed assignment. Review of systems: As above. Medications Current Inpatient Medications Medications (Trade) Dose Ordered Sig/Lillian Route Start Time Stop Time Status Last Admin Dose Admin Acetaminophen (Tylenol Tab) 650 mg Q4H PRN PO 12/26/17 02:45 01/25/18 02:44 Al Hydrox/Mg Hydrox/Simethicone (Maalox Max Susp) 15 ml Q4H PRN PO 12/26/17 02:45 01/25/18 02:44 Magnesium Hydroxide (Milk Of Magnesia Susp) 30 ml Q12H PRN PO 12/26/17 02:45 01/25/18 02:44 12/27/17 18:44 30 ML Zolpidem Tartrate (Ambien Tab) 5 mg HSZ PRN PO 12/26/17 02:45 01/25/18 02:44 Ondansetron HCl (Zofran Inj) 4 mg Q6H PRN IV 12/26/17 02:45 01/25/18 02:44 Nitroglycerin (Nitrostat Tab) 0.4 mg UD PRN SL 12/26/17 02:45 01/25/18 02:44 Morphine Sulfate (MoRPHine SULFATE INJ) 2 mg Q30M PRN IV 12/26/17 02:45 01/09/18 02:44 Aspirin (Ecotrin Tab) 81 mg QAM PO 12/26/17 09:00 01/25/18 08:59 12/28/17 08:51 81 MG Polyethylene (Miralax Powder Packet) 17 gm DAILY PRN PO 12/26/17 02:45 01/25/18 02:44 Atorvastatin Calcium (Lipitor Tab) 40 mg QAM PO 12/26/17 09:00 01/25/18 08:59 12/28/17 08:51 40 MG Heparin Sodium/ Dextrose 500 ml @ 29 mls/hr [id number] IV 12/26/17 04:00 01/25/18 03:59 12/28/17 01:35 30 MLS/HR Metoprolol Tartrate (Lopressor Tab) 25 mg BID PO 12/26/17 21:00 01/25/18 20:59 12/28/17 08:51 25 MG Insulin Aspart (novoLOG ASPART) SLIDING SCALE If C... ACHS SC 12/27/17 16:15 01/26/18 16:14 12/27/17 17:04 3 UNITS Glucose (Glucose 40% Gel) 15-30 GRAMS 15 GRAMS... UD PRN PO 12/27/17 15:30 01/26/18 15:29 Glucose (Glucose Chew Tab) 4-8 Tablets 4 Tabl... UD PRN PO 12/27/17 15:30 01/26/18 15:29 Dextrose (Dextrose 50% 50ML Syringe) 25-50ML 25ML FOR ... UD PRN IV 12/27/17 15:30 01/26/18 15:29 Glucagon (Glucagon Inj) 1 mg UD PRN SQ 12/27/17 15:30 01/26/18 15:29 Carbohydrates (Carbohydrates For Hypoglycemia) 15-30 GRAMS 15 grams if BSG 54-69... UD PRN PO 12/27/17 15:30 01/26/18 15:29 Docusate Sodium (coLACE CAP) 100 mg BID PO 12/27/17 21:00 01/26/18 20:59 12/28/17 08:53 100 MG Objective Vital Signs Past 12 Hours Date Time Temp Pulse Resp B/P (MAP) Pulse Ox O2 Delivery O2 Flow Rate FiO2 12/28/17 10:54 36.5 58 18 127/80 (96) 95 Room Air 12/28/17 08:00 Room Air 12/28/17 06:55 36.9 58 18 112/78 (89) 97 Room Air 12/28/17 03:01 36.7 59 16 133/88 (103) 97 Room Air Last Recorded Weight-Kilograms: 88.300 Intake & Output 12/27/17 12/28/17 12/29/17 08:00 08:00 08:00 Intake Total 3200 ml 2264 ml Output Total 350 ml Balance 2850 ml 2264 ml Physical Exam Gen.: No acute distress. Alert and oriented. HEENT: Anicteric sclera. Neck: No JVD. No bruits. Normal carotid upstrokes bilaterally. Cardiac: No ventricular heave. Regular. No ectopy. Normal S1-S2. No murmurs, rubs, or gallops. Pulmonary: Clear to auscultation bilaterally without wheezes, rales, or rhonchi. Abdomen: Soft, nontender, nondistended, with normoactive bowel sounds. No bruits noted. Extremities: No edema or cyanosis. Right radial cath site is clean, dry, and intact without erythema or discharge. 2+ right radial pulse. Psychiatric: Affect appears appropriate. Data Laboratory Results: Last 24 Hours Test 12/27/17 15:17 12/27/17 16:18 12/27/17 20:21 12/28/17 00:22 Activated Partial Thromboplast Time 33.6 SECONDS 43.8 SECONDS Partial Thromboplastin Ratio 1.3 1.7 Bedside Glucose 134 mg/dl 110 mg/dl Test 12/28/17 06:42 12/28/17 06:43 12/28/17 07:18 12/28/17 11:20 Activated Partial Thromboplast Time 73.9 SECONDS Partial Thromboplastin Ratio 2.8 White Blood Count 6.83 K/uL Red Blood Count 5.00 M/uL Hemoglobin 15.2 g/dL Hematocrit 43.6 % Mean Corpuscular Volume 87.2 fL Mean Corpuscular Hemoglobin 30.4 pg Mean Corpuscular Hemoglobin Concent 34.9 g/dl RDW Standard Deviation 41.6 fL RDW Coefficient of Variation 13.1 % Platelet Count 129 K/uL Mean Platelet Volume 9.7 fL Sodium Level 139 mmol/L Potassium Level 4.1 mmol/L Chloride Level 108 mmol/L Carbon Dioxide Level 23 mmol/L Anion Gap 8.0 mmol/L Blood Urea Nitrogen 15 mg/dl Creatinine 1.15 mg/dl Est Creatinine Clear Calc Drug Dose 65.0 ml/min Estimated GFR () 77.5 Estimated GFR (Non- 66.9 BUN/Creatinine Ratio 13.2 Random Glucose 129 mg/dl Calcium Level 8.7 mg/dl Troponin I 1.510 ng/ml Bedside Glucose 132 mg/dl 123 mg/dl Cardiac catheterization 12/27/2017: Proximal hazy LAD stenosis 50-70%. Early mid LAD 70% involving bifurcation of small D2 followed by sequential mid LAD 70- 80%. Distal LAD is small in caliber. Proximal circumflex 20%. Large OM2 mid 30%. Proximal RCA 99% followed by mid RCA 100%. PL, PDA, and distal RCA fills via [id number] collaterals. LVEDP 17. No aortic stenosis. Telemetry personally reviewed: No arrhythmia. Assessment and Plan ASSESSMENT/PLAN: 1. NSTEMI: Troponin has peaked at 3.92. He has not had any further angina since presentation. He is found to have multivessel CAD and is pending transfer to [facility] for evaluation of PCI. Continue beta- blayne. Continue aspirin 81 mg daily. Continue heparin drip and high- intensity statin therapy. Presentation and findings were discussed with Dr. hSarpe (interventional Cardiology) at [facility]. Unfortunately, he was unable to view the images. The decision to withhold dual anti-platelet therapy is due to the fact that if he is not found to be a suitable PCI candidate, the option remains for CABG evaluation. His distal LAD however is small in caliber. 2. CAD: Continue medical therapy as noted above. Pending transferred to [facility] for evaluation of PCI. Dyslipidemia: HDL is low. LDL is elevated if he truly has CAD. Continue high-intensity statin therapy. 3. Angina: No further angina. Continue current medical therapy while awaiting coronary angiography. 4. Acute renal insufficiency: Renal function has improved with fluid. Per primary service. 5. Disposition: Cardiology will continue to follow while hospitalized at this facility. Follow-up in approximately 1 week in the outpatient setting. Pending transferred to [facility] for evaluation of PCI. Patient care has been communicated with primary service, Ms. Goldstein.
[2017-12-28 15:52] LABS: PTT PATIENT 62.5 SECONDS (21.0-31.0)
--- NOTE | 2017-12-28 18:46 | Hospitalist Progress Note ---
Hospitalist Progress Note Date of Service Dec 28, 2017. Subjective Pt evaluation today including: conversation w/ patient, physical exam, chart review, lab review, review of studies, conversation w/ product safety consultant (Dr. Garay ), review of inpatient medication list Patient seen and evaluated. No acute events overnight. Awaiting bed at [facility]. Continues to feel well without any more CP or dizziness/ lightheadedness. Remains on heparin gtt. Discussed glucose again with patient. BSGs have been acceptable. Did encourage him to adjust diet and as he recovers from a cardiac standpoint to increase his physical activity as likely with time that can ultimately improve his glucose control. Likely will need oral coverage in the meantime. Constitutional: No fever, No chills Respiratory: No cough, No shortness of breath Cardiovascular: No chest pain, No palpitations Abdomen: No pain, No nausea, No vomiting, No diarrhea, No constipation Musculoskeletal: No joint pain Heme: No abnormal bleeding/bruising Medications Current Inpatient Medications Medications (Trade) Dose Ordered Sig/Lillian Route Start Time Stop Time Status Last Admin Dose Admin Acetaminophen (Tylenol Tab) 650 mg Q4H PRN PO 12/26/17 02:45 01/25/18 02:44 Al Hydrox/Mg Hydrox/Simethicone (Maalox Max Susp) 15 ml Q4H PRN PO 12/26/17 02:45 01/25/18 02:44 Magnesium Hydroxide (Milk Of Magnesia Susp) 30 ml Q12H PRN PO 12/26/17 02:45 01/25/18 02:44 12/27/17 18:44 30 ML Zolpidem Tartrate (Ambien Tab) 5 mg HSZ PRN PO 12/26/17 02:45 01/25/18 02:44 Ondansetron HCl (Zofran Inj) 4 mg Q6H PRN IV 12/26/17 02:45 01/25/18 02:44 Nitroglycerin (Nitrostat Tab) 0.4 mg UD PRN SL 12/26/17 02:45 01/25/18 02:44 Morphine Sulfate (MoRPHine SULFATE INJ) 2 mg Q30M PRN IV 12/26/17 02:45 01/09/18 02:44 Aspirin (Ecotrin Tab) 81 mg QAM PO 12/26/17 09:00 01/25/18 08:59 12/28/17 08:51 81 MG Polyethylene (Miralax Powder Packet) 17 gm DAILY PRN PO 12/26/17 02:45 01/25/18 02:44 Atorvastatin Calcium (Lipitor Tab) 40 mg QAM PO 12/26/17 09:00 01/25/18 08:59 12/28/17 08:51 40 MG Heparin Sodium/ Dextrose 500 ml @ 29 mls/hr [id number] IV 12/26/17 04:00 01/25/18 03:59 12/28/17 18:09 29 MLS/HR Metoprolol Tartrate (Lopressor Tab) 25 mg BID PO 12/26/17 21:00 01/25/18 20:59 12/28/17 08:51 25 MG Insulin Aspart (novoLOG ASPART) SLIDING SCALE If C... ACHS SC 12/27/17 16:15 01/26/18 16:14 12/28/17 17:30 2 UNITS Glucose (Glucose 40% Gel) 15-30 GRAMS 15 GRAMS... UD PRN PO 12/27/17 15:30 01/26/18 15:29 Glucose (Glucose Chew Tab) 4-8 Tablets 4 Tabl... UD PRN PO 12/27/17 15:30 01/26/18 15:29 Dextrose (Dextrose 50% 50ML Syringe) 25-50ML 25ML FOR ... UD PRN IV 12/27/17 15:30 01/26/18 15:29 Glucagon (Glucagon Inj) 1 mg UD PRN SQ 12/27/17 15:30 01/26/18 15:29 Carbohydrates (Carbohydrates For Hypoglycemia) 15-30 GRAMS 15 grams if BSG 54-69... UD PRN PO 12/27/17 15:30 01/26/18 15:29 Docusate Sodium (coLACE CAP) 100 mg BID PO 12/27/17 21:00 01/26/18 20:59 12/28/17 08:53 100 MG Objective Vital Signs Date Time Temp Pulse Resp B/P (MAP) Pulse Ox O2 Delivery O2 Flow Rate FiO2 12/28/17 15:01 36.4 61 20 127/81 (96) 93 Room Air 12/28/17 10:54 36.5 58 18 127/80 (96) 95 Room Air 12/28/17 08:00 Room Air 12/28/17 06:55 36.9 58 18 112/78 (89) 97 Room Air 12/28/17 03:01 36.7 59 16 133/88 (103) 97 Room Air 12/28/17 00:20 Room Air 12/27/17 20:32 37.1 75 18 129/80 (96) 95 Room Air 12/27/17 20:28 69 151/91 (111) Physical Exam General Appearance: WD/WN, no apparent distress Eyes: sclerae normal ENT: hearing grossly normal Neck: supple, no JVD, trachea midline Respiratory/Chest: lungs clear, normal breath sounds, no respiratory distress, no accessory muscle use Cardiovascular: regular rate, rhythm, no gallop, no murmur Abdomen: normal bowel sounds, non tender, soft Extremities: no pedal edema, + pertinent finding (R wrist cath insertion site without bleeding) Neurologic/Psychiatric: alert, oriented x 3 Skin: normal color, warm/dry Laboratory Results Last 24 Hours Test 12/27/17 20:21 12/28/17 00:22 12/28/17 06:42 12/28/17 06:43 Bedside Glucose 110 mg/dl Activated Partial Thromboplast Time 43.8 SECONDS 73.9 SECONDS Partial Thromboplastin Ratio 1.7 2.8 White Blood Count 6.83 K/uL Red Blood Count 5.00 M/uL Hemoglobin 15.2 g/dL Hematocrit 43.6 % Mean Corpuscular Volume 87.2 fL Mean Corpuscular Hemoglobin 30.4 pg Mean Corpuscular Hemoglobin Concent 34.9 g/dl RDW Standard Deviation 41.6 fL RDW Coefficient of Variation 13.1 % Platelet Count 129 K/uL Mean Platelet Volume 9.7 fL Sodium Level 139 mmol/L Potassium Level 4.1 mmol/L Chloride Level 108 mmol/L Carbon Dioxide Level 23 mmol/L Anion Gap 8.0 mmol/L Blood Urea Nitrogen 15 mg/dl Creatinine 1.15 mg/dl Est Creatinine Clear Calc Drug Dose 65.0 ml/min Estimated GFR () 77.5 Estimated GFR (Non- 66.9 BUN/Creatinine Ratio 13.2 Random Glucose 129 mg/dl Calcium Level 8.7 mg/dl Troponin I 1.510 ng/ml Test 12/28/17 07:18 12/28/17 11:20 12/28/17 14:34 12/28/17 16:20 Bedside Glucose 132 mg/dl 123 mg/dl 122 mg/dl Activated Partial Thromboplast Time 62.5 SECONDS Partial Thromboplastin Ratio 2.4 Assessment and Plan 62 y/o M without a significant medical history. Developed central CP, nonradiating, associated with SOB, diaphoresis and nausea. The pain was relieved by NTG and Fentanyl on arrival to the ER. Initial troponin is negative , An EKG shows flattening of T waves in lateral leads as compared to a repeat EKG obtained after his CP had resolved. Initial labs are notable for ARF with a creatinine of 2.0. leukocytosis and mild hypokalemia. He denies a history of CKD. He recently had surgery for a urethral stricture and denies any dysuria over the past few wks. 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 Garay - plan remains to transfer to [facility] tomorrow for high risk PCI vs other revascularization T2DM: A1c 7.3 - Will place SSI at this time - will need to address treatment - likely can initiate on oral medications Acute Kidney Injury - Pre-Renal: RESOLVED - Had ureteral stricture repair approx. [address] Jackson - no issues urinary mcgrath - given the improvement with fluids this was likely pre- renal and no signs of obstruction at this time but will continue to monitor DVT Prophylaxis: Heparin gtt Code Status: FULL RESUSCITATION Disposition: [facility] transfer for high risk PCI vs other revascularization - awaiting bed at [facility] Discharge planning: acute transfer
--- NOTE | 2017-12-29 09:02 | Discharge Summary ---
Discharge Summary Date of Service Dec 28, 2017. Discharge Summary Admission Date: Dec 26, 2017 at 02:38 Discharge Date: Dec 28, 2017 Discharge Disposition: Acute care facility ([facility]) Principal Diagnosis: Severe CAD/NSTEMI and Acute Kidney Injury and New T2DM Problems/Secondary Diagnoses: 1. Severe Multi-Vessel CAD in LAD and RCA 2. NSTEMI 3. New Onset T2DM 4. Acute Kidney Injury 5. Ureteral Stricture S/P Repair November 2017 - Dr. Jackson 6. S/P Umbilical Hernia Repair 2000 Consultations: 1. Cardiology - Dr. Garay Medication Reconciliation Medication Profile: No Active Prescriptions or Reported Meds Discharge Exam REVIEW OF SYSTEMS Constitutional: No fever, No chills Respiratory: No cough, No shortness of breath Cardiovascular: No chest pain, No palpitations Abdomen: No pain, No nausea, No vomiting, No diarrhea, No constipation Musculoskeletal: No joint pain Heme: No abnormal bleeding/bruising PHYSICAL EXAMINATION: General Appearance: WD/WN, no apparent distress Eyes: sclerae normal ENT: hearing grossly normal Neck: supple, no JVD, trachea midline Respiratory/Chest: lungs clear, normal breath sounds, no respiratory distress, no accessory muscle use Cardiovascular: regular rate, rhythm, no gallop, no murmur Abdomen: normal bowel sounds, non tender, soft Extremities: no pedal edema, + pertinent finding (R wrist cath insertion site without bleeding) Neurologic/Psychiatric: alert, oriented x 3 Skin: normal color, warm/dry Hospital Course ADMISSION: 62 y/o M without a significant medical history. Developed central CP , nonradiating, associated with SOB, diaphoresis and nausea. The pain was relieved by NTG and Fentanyl on arrival to the ER. Initial troponin is negative , An EKG shows flattening of T waves in lateral leads as compared to a repeat EKG obtained after his CP had resolved. Initial labs are notable for ARF with a creatinine of 2.0. He denies a history of CKD. He recently had surgery for a urethral stricture and denies any dysuria over the past few wks. HOSPITAL COURSE: NSTEMI with Severe Multi-Vessel CAD in RCA and LAD: - Patient remains asymptomatic since initial event that brought him in - troponins peaked at 3.9 and trended down - Heparin gtt instituted and [place] [facility] [place] ASA 81 mg daily, Atorvastatin 40 mg daily, and Lopressor 25 mg BID - may be adjusted per evaluation [place] [facility] [place] Heart cath completed on 12/27 - severe multivessel CAD in LCA/RCA - deemed too high risk for inhouse PCI without CT surgical back-up - Cardiology followed - Dr. Garay - plan to [place] [facility] [place] high risk PCI vs other revascularization and would like to F/U after stay [place] [facility] T2DM: A1c 7.3 - New diagnosis - utilized insulin in house and may have medications added once complete [place] [facility] - likely can be maintained on oral anti-diabetics and discussed exercise/diet modifications to hopefully improve with lifestyle changes Acute Kidney Injury - Pre-Renal: RESOLVED - Had ureteral stricture repair approx. [address] Jackson - no issues urinary mcgrath - given the improvement with fluids this was likely pre- renal and no signs of obstruction at this time DVT Prophylaxis: Heparin gtt Code Status: FULL RESUSCITATION Disposition[place] [facility] [place] high risk PCI vs other revascularization Total Time Spent: Greater than 30 minutes This includes examination of the patient, discharge planning, medication reconciliation, and communication with other providers. Discharge Instructions Please refer to the electronic Patient Visit Report (Discharge Instructions) for additional information. Additional Copies To Salvatore Martinez M.D.
== END 2017-12-28 22:52 | disposition short-term general hospital (02) | DRG 281 ==
LOC: C.EDA 00:45 → C.2T 02:38 → ENRESERV 03:02
PROVIDERS: ADMIT Internal Medicine; ATTEND Internal Medicine
PROC: 4A023N7 Measurement of Cardiac Sampling and Pressure, Left Heart, Percutaneous Approach (ICD-10-PCS; principal; 2017-12-27 08:09)
PROC: B211110 Fluoroscopy of Multiple Coronary Arteries using Low Osmolar Contrast, Laser Intraoperative (ICD-10-PCS; principal; 2017-12-27 08:09)
DX: I21.4 Non-ST elevation (NSTEMI) myocardial infarction (principal); N17.9 Acute kidney failure, unspecified; I25.119 Atherosclerotic heart disease of native coronary artery with unspecified angina pectoris; E11.9 Type 2 diabetes mellitus without complications; Z82.0 Family history of epilepsy and other diseases of the nervous system; E87.6 Hypokalemia; Z98.890 Other specified postprocedural states; F17.290 Nicotine dependence, other tobacco product, uncomplicated; E78.5 Hyperlipidemia, unspecified

== ENCOUNTER 2024-06-18 20:09 | Observation (INO) ==
[2024-06-18 20:38] LABS: Basophils # (auto) 0.01 K/uL (0.00-0.20); Basophils % (auto) 0.2 %; Eosinophils # (auto) 0.05 K/uL (0.00-0.50); Eosinophils % (auto) 0.9 %; Hematocrit (blood only) 48.1 % (42.0-52.0); Hemoglobin 16.2 g/dl (14.0-18.0); Immature Granulocytes # (auto) 0.02 K/uL (0.01-0.20); Immature Granulocytes % (auto) 0.4 %; Lymphocytes # (auto) 0.26 K/uL (1.20-3.40); Lymphocytes % (auto) 4.8 %; Mean Corpuscular Hemoglobin 29.2 pg (25.0-34.0); Mean Corpuscular Hgb Conc 33.7 g/dL (32.0-36.0); Mean Corpuscular Volume 86.7 fL (80.0-100.0); Mean Platelet Volume 9.3 fL (9.4-12.4); Monocytes # (auto) 0.76 K/uL (0.11-0.59); Monocytes % (auto) 14.1 %; Neutrophils % (auto) 79.6 %; Platelet Count 144 K/uL (130-400); RDW Coefficient of Variation 13.2 % (11.5-14.5); RDW Standard Deviation 41.3 fL (36.4-46.3); Red Blood Count 5.55 M/uL (4.70-6.10)
[2024-06-18 20:55] LABS: Alanine Aminotransferase 35 U/L (7-52); Albumin Globulin Ratio 1.8 (0.9-2); Albumin Level 4.7 gm/dl (3.4-5.0); Alkaline Phosphatase 95 U/L (34-104); Anion Gap 9 (3-11); Aspartate Aminotransferase 32 U/L (13-39); BUN Creatinine Ratio 7.5 (10-20); Bilirubin,Total 0.9 mg/dl (0.2-1.0); Blood Urea Nitrogen 10 mg/dl (6-23); Carbon Dioxide 24 mmol/L (21-32); Chloride 107 mmol/L (98-107); Globulin 2.6 gm/dl (2.5-4.0); Glucose 100 mg/dl (70-99(Fasting)); Potassium 3.7 mmol/L (3.5-5.1); Sodium 140 mmol/L (136-145); Total Protein 7.3 gm/dl (6.0-8.3)
[2024-06-18] MEDS: SODIUM CHLORIDE 0.9% 1,000 ML IV SCH (23:35)
[2024-06-18 23:46] LABS: Magnesium 1.6 mg/dl (1.7-2.4)
--- NOTE | 2024-06-18 23:54 | Emergency Department Note ---
Impression & Plan Generalized weakness, Influenza A, Hypomagnesemia ED Provider Note ED Provider Note NAME: QUINTEN LAINEZ AGE:68 SEX: Male : 1955 ARRIVES VIA: EMS INFORMANT: Patient ED PROVIDER(s): Tania Batista DO CHIEF COMPLAINT: Weakness HPI: This is a 68-year-old male presents to the emergency department via EMS after a slow fall from the couch onto the floor. Patient states he was unable to get back up. Patient seen and evaluated here earlier in the day and diagnosed with influenza A. 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 He states yesterday he developed a sore throat and then a cough. He states following that he developed body aches, subjective fevers and chills, weakness, fatigue, and decreased appetite. He denies any other recent travel or change in medications. Patient states he did not have very much to eat today and feels he is likely dehydrated additionally. He denies any focal abdominal pain or chest pain but states he is sore along his ribs from coughing. He denies any hemoptysis or shortness of breath. He denies head injury or loss of consciousness. Denies any pain or concern for injury following the fall. PAST MEDICAL HISTORY:See Below PAST SURGICAL HISTORY:See Below FAMILY HISTORY:See Below SOCIAL HISTORY:See Below HOME MEDICATIONS:See Below ALLERGIES:See Below VITALS:See Below PHYSICAL EXAMINATION: GENERAL: alert, well appearing, well nourished, no distress, non-toxic HEAD: nc/at EYE EXAM: normal conjunctiva, PERRL and EOM's grossly intact OROPHARYNX: no exudate, no erythema, lips, buccal mucosa, and tongue normal and mucous membranes are moist NECK: supple, no nuchal rigidity, no adenopathy, non-tender LUNGS: Clear to auscultation. Normal chest wall mechanics, no w/r/r HEART: no murmurs, S1 normal and S2 normal ABDOMEN: abdomen soft, non-tender, normo-active bowel sounds, no masses, no rebound or guarding. BACK: Back is symmetrical on inspection and there is no deformity, no midline tenderness, no CVA tenderness. SKIN: no rashes, petechiae, orbruising UPPER EXTREMITIES: upper extremities are grossly normal. FROM, nml pulses b/l. No evidence of trauma or deformity. LOWER EXTREMITIES: No pitting edema. FROM, nml pulses b/l. No evidence of trauma or deformity. NEURO EXAM: Normal sensorium, cranial nerves II-XII grossly intact, normal speech, no facial droop,nogross weakness of arms, no gross weakness of legs. Gross sensation intact. No ataxia. Vital Signs: reviewed and remarkable Differential Diagnosis: dehydration, stroke, anemia, hypoglycemia, hyponatremia, hypernatremia, urinary tract infection, pneumonia, bronchitis, sepsis, gastroenteritis, additional abdominal pathology, metabolic abnormalities, as well as others were considered MEDICAL DECISION MAKING: This is a 68-year-old male presents to the emergency department due to concern for increased weakness. Patient seen and evaluated here earlier today and diagnosed with influenza. His other labs are reassuring. He admits to dehydration. Chest x-ray performed at first visit was reassuring. Patient stated he had not had much to eat or drink all day today and feels dehydration is likely contributing. Repeat labs here are reassuring, he was afebrile and hemodynamically stable. No increased work of breathing or hypoxia noted. Patient started on IV fluids. Given concern for weakness, low-grade fall tonight for which patient denies any concern for injury and no evidence of injury on exam in the setting of known acute viral illness that his age, the case was discussed with the hospitalist team for additional evaluation and management. I did discuss Tamiflu with the patient at bedside. He states initially it had been discussed and decided against. Given his recurring ER visit and worsening symptoms he is now in agreement with initiation of Tamiflu. Consultation(s): 0010: Discussed with Dr. Padilla, [place] hospitalist team, for additional evaluation and mgmt. ER Treatment Provided: See below Diagnostics Interpreted By Me: -ECG: [] -Cardiac Monitoring: An order was placed for continuous cardiac monitoring. The monitor shows a rate of 110 with sinus tachycardia rhythm. -Laboratory studies: As stated above and show below. Triage Nursing Note Reviewed Prior/Outside Records Reviewed Past Med/Surg History Problem List (Updated 06/18/24 @ 23:54 by Tania Batista DO) Hypomagnesemia (Acute) Generalized weakness (Acute) Cough (Acute) Influenza A (Acute) CAD (coronary artery disease) Hypercholesteremia Chest pain Constipation Diabetes mellitus type 2, uncontrolled (Chronic) Medical History Diabetes mellitus, type 2 Hyperlipidemia Hypertension Non-ST elevation myocardial infarction (NSTEMI), subsequent episode of care (12/2017) Surgical History History of cataract surgery S/P umbilical hernia repair, follow-up exam History of cystoscopy History of cardiac cath History of coronary artery bypass graft Family History Denies family history of Ovarian cancer Prostate cancer Myocardial infarction Breast cancer Colorectal cancer Social History Smoking Status: Current every day smoker Tobacco Type: Cigars Age Started Using Tobacco: 18; Second Hand Exposure: Yes; Do You Dip or Chew Tobacco: No; Hx Alcohol Use: No Hx Substance Use: No Preferred Language: German Communication Ability: Effective Visual Impairment: No Limitations Hearing Ability: Normal Cardiovascular Lab Director Required: No Beliefs That Will Affect Care: None marital status: single Current Living Situation: Significant Other Current Living Situation Comment: lives with girlfriend Jessica current occupational status: employed 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 [employer] Feels Safe at Home: Yes Childhood Exposure to Second-Hand Smoke: No Diet: regular Dental Care, Regularly: No Physical Activity Frequency: 3-4 Times per Week Seatbelt Use: always Sunscreen Use: No Assistive Devices: Contacts Allergies Allergies Allergy/AdvReac Type Severity Reaction Status Date / Time diphenhydramine AdvReac Severe inability Verified 01/30/24 14:18 to void Home Meds Home Medications Medication Instructions Recorded Confirmed aspirin 81 mg tablet,delayed 81 mg PO QAM 11/22/19 01/30/24 release (Dominique Low Dose Aspirin) Previous Rx's Medication Instructions Recorded atorvastatin 80 mg tablet 80 mg PO HS #90 tabs 01/30/24 glimepiride 4 mg tablet 4 mg PO BID 90 days #180 tabs 01/30/24 metformin 500 mg tablet,extended 1,000 mg (2 x 500 mg) PO BID 90 01/30/24 release 24 hr days #360 tabs metoprolol tartrate 25 mg tablet 25 mg PO BID #180 tabs 01/30/24 Results & Data (ED) Vital Signs Vital Signs - 24 hr 06/18/24 20:12 06/18/24 20:54 06/18/24 20:54 Temperature 36.9 C Temperature Source Temporal Artery Scan Pulse Rate 110 H 105 H Pulse Rate [Apical] 104 H Pulse Rhythm Regular Pulse Strength Normal Respiratory Rate 20 32 H Respiratory Effort / Characteristics Non-Labored Spontaneous Non-Labored Spontaneous Respiratory Depth Normal Normal Respiratory Pattern Regular Regular Blood Pressure 146/82 H Blood Pressure [Right Arm] 148/84 H Blood Pressure Mean 103 Blood Pressure Mean [Right Arm] 105 Blood Pressure Position Sitting Pulse Oximetry 96 97 Oxygen Delivery Method Room Air Room Air Sepsis Recent Fever Within 48 Hours No Sepsis New/Unexplained Change in Mental Status N/A Sepsis Action Taken by Nursing No Action Required 06/18/24 22:00 06/18/24 23:35 06/19/24 00:37 Temperature Temperature Source Pulse Rate 104 H Pulse Rate [Apical] 106 H 108 H Pulse Rhythm Pulse Strength Respiratory Rate 22 24 Respiratory Effort / Characteristics Non-Labored Spontaneous Respiratory Depth Normal Respiratory Pattern Regular Blood Pressure Blood Pressure [Right Arm] 126/78 93/63 L Blood Pressure Mean Blood Pressure Mean [Right Arm] 94 73 Blood Pressure Position Pulse Oximetry 96 93 Oxygen Delivery Method Room Air Room Air Sepsis Recent Fever Within 48 Hours Sepsis New/Unexplained Change in Mental Status Sepsis Action Taken by Nursing Laboratory Data 06/18/24 20:23 06/18/24 20:23 Lab Results 06/18/24 Range/Units 20:23 WBC 5.40 (4.8-10.8) K/ul RBC 5.55 (4.70-6.10) M/uL Hgb 16.2 (14.0-18.0) g/dl Hct 48.1 (42.0-52.0) % MCV 86.7 (80.0-100.0) fL MCH 29.2 (25.0-34.0) pg MCHC 33.7 (32.0-36.0) g/dL RDW Std Deviation 41.3 (36.4-46.3) fL RDW Coeff of Beverley 13.2 (11.5-14.5) % Plt Count 144 (130-400) K/uL MPV 9.3 L (9.4-12.4) fL Immature Gran % (Auto) 0.4 % Neut % (Auto) 79.6 % Lymph % (Auto) 4.8 % Ripley % (Auto) 14.1 % Eos % (Auto) 0.9 % Baso % (Auto) 0.2 % Neut # (Auto) 4.30 (1.40-6.50) K/uL Lymph # (Auto) 0.26 L (1.20-3.40) K/uL Ripley # (Auto) 0.76 H (0.11-0.59) K/uL Eos # (Auto) 0.05 (0.00-0.50) K/uL Baso # (Auto) 0.01 (0.00-0.20) K/uL Immature Gran # (Auto) 0.02 (0.01-0.20) K/uL Sodium 140 (136-145) mmol/L Potassium 3.7 (3.5-5.1) mmol/L Chloride 107 (98-107) mmol/L Carbon Dioxide 24 (21-32) mmol/L Anion Gap 9 (3-11) BUN 10 (6-23) mg/dl Creatinine 1.34 (0.6-1.4) mg/dl Est Cr Clr Drug Dosing Not Reportable eGFR 56.99 BUN/Creatinine Ratio 7.5 L (10-20) Glucose 100 H (70-99(Fasting)) mg/dl Calcium 9.0 (8.6-10.3) mg/dl Magnesium 1.6 L (1.7-2.4) mg/dl Total Bilirubin 0.9 (0.2-1.0) mg/dl AST 32 (13-39) U/L ALT 35 (7-52) U/L Alkaline Phosphatase 95 (34-104) U/L Total Protein 7.3 (6.0-8.3) gm/dl Albumin 4.7 (3.4-5.0) gm/dl Globulin 2.6 (2.5-4.0) gm/dl Albumin/Globulin Ratio 1.8 (0.9-2) TSH 1.698 (0.300-4.500) uIu/ml Administered Medications Sodium Chloride (Nss) 1,000 mls @ 125 mls/hr IV .Q8H [facility] Stop: 06/19/24 23:14 Last Admin: 06/18/24 23:35 Dose: 125 mls/hr Documented By: ASW Discontinued Medications Magnesium Sulfate/Dextrose (Magnesium Sulfate / D5w) 1 gm in 100 mls @ 100 mls/hr IV NOW STA Stop: 06/19/24 00:49 Last Admin: 06/19/24 00:00 Dose: 100 mls/hr Documented By: MADELINE Methylprednisolone (Methylprednisolone 125 Mg/2 Ml Vial) 60 mg IV NOW STA Stop: 06/19/24 01:00 Last Admin: 06/19/24 01:21 Dose: 60 mg Documented By: KELECHI Oseltamivir Phosphate (Oseltamivir Phosphate 75 Mg Cap) 75 mg PO NOW STA; Protocol Stop: 06/19/24 00:12 Last Admin: 06/19/24 00:39 Dose: 75 mg Documented By: MADELINE Discharge Plan Visit Data Chief Complaint: Weakness Stated Complaint: WEAKNESS, JUST D/C'D 1 HOUR AGO, FLU A ED Provider: Tania Batista Discharge Problem: Generalized weakness, Influenza A, Hypomagnesemia
[2024-06-19] MEDS: MAGNESIUM SULFATE / D5W 1 GM/100 ML BAG IV STA
[2024-06-19 00:02] LABS: Thyroid Stimulating Hormone 1.698 uIu/ml (0.300-4.500)
[2024-06-19] MEDS: OSELTAMIVIR PHOSPHATE 75 MG CAP PO STA (00:39)
--- NOTE | 2024-06-19 00:39 | History & Physical Report ---
Date of Service June 19, 2024 Assessment & Plan (1) Influenza A: (2) Generalized weakness: (3) Hypomagnesemia: (4) Acute kidney injury: Plan The patient is a 5-year-old male with a past medical history including hyperlipidemia, diabetes mellitus, hypertension, and coronary disease. He initially presented to the emergency department early in the morning, and was diagnosed with influenza A at that time. He felt that he was able to go home after symptomatic treatment, however, he developed progressively worsening fatigue, generalized weakness, ambulatory dysfunction, and had a near syncopal episode where to lower himself gently to the floor and was unable to get back up. He presented to the ED for further assessment and later in the afternoon, and was then referred for evaluation for admission. #Influenza A- Patient with significant fatigue, generalized weakness, ambulatory dysfunction, myalgias and arthralgias. Start Tamiflu 75 mg p.o. twice daily Start Solu-Medrol 60 mg IV now, then 40 mg IV every 12 hours Mucinex 600 mg p.o. every 12 hours Hycodan syrup 5 mL p.o. every 4 hours as needed harsh cough NSS at 125 mL/h begun in the ED to continue x 1 L #Diabetes mellitus- Hold glimepiride and metformin Placed on Accu-Cheks with NovoLog SSI Expect increases in glucose while on steroids #Renal insufficiency- Creatinine 1.34, with base 1.25 IV fluids as noted above, and recheck laboratories in the a.m. #Hypomagnesemia- Magnesium 1.6 on admission To get magnesium sulfate 1 g IV, recheck laboratories in the a.m. #Chronic medical issues: CAD-no signs of ischemia continue aspirin and metoprolol Hyperlipidemia-continue atorvastatin History of Present Illness Chief Complaint: The patient initially presented to the emergency department on the morning of 06/18 with symptoms of sore throat, cough, and then began to have body aches, subjective fevers and chills, generalized weakness, and decreased appetite. When he presented to the emergency department at that time he was diagnosed with influenza A and sent home with symptomatic treatment. He presented to the emergency department after being at home for about an hour, due to near syncopal episodes, where he had to lower himself to the floor, and was unable to get up on his own Primary Care Provider: Ilia P. Knott, DO The patient is a 5-year-old male with a past medical history including hyperlipidemia, diabetes mellitus, hypertension, and coronary disease. He initially presented to the emergency department early in the morning, and was diagnosed with influenza A at that time. He felt that he was able to go home after symptomatic treatment, however, he developed progressively worsening fatigue, generalized weakness, ambulatory dysfunction, and had a near syncopal episode where to lower himself gently to the floor and was unable to get back up. He presented to the ED for further assessment and later in the afternoon, and was then referred for evaluation for admission. Allergies Allergy/AdvReac Type Severity Reaction Status Date / Time diphenhydramine AdvReac Severe inability Verified 01/30/24 14:18 to void Home Medications Medication Instructions Recorded Confirmed Type aspirin 81 mg tablet,delayed 81 mg PO QAM 11/22/19 01/30/24 History release (Dominique Low Dose Aspirin) atorvastatin 80 mg tablet 80 mg PO HS #90 tabs 01/30/24 01/30/24 Rx glimepiride 4 mg tablet 4 mg PO BID 90 days #180 tabs 01/30/24 01/30/24 Rx metformin 500 mg tablet,extended 1,000 mg (2 x 500 mg) PO BID 90 01/30/24 01/30/24 Rx release 24 hr days #360 tabs metoprolol tartrate 25 mg tablet 25 mg PO BID #180 tabs 01/30/24 01/30/24 Rx Past Med/Surg History Problem List (Updated 06/19/24 @ 03:44 by Chung Padilla MD) Acute kidney injury Hypomagnesemia (Acute) Generalized weakness (Acute) Cough (Acute) Influenza A (Acute) CAD (coronary artery disease) Hypercholesteremia Chest pain Constipation Diabetes mellitus type 2, uncontrolled (Chronic) Medical History Diabetes mellitus, type 2 Hyperlipidemia Hypertension Non-ST elevation myocardial infarction (NSTEMI), subsequent episode of care (12/2017) Surgical History History of cataract surgery S/P umbilical hernia repair, follow-up exam History of cystoscopy History of cardiac cath History of coronary artery bypass graft Family History Denies family history of Ovarian cancer Prostate cancer Myocardial infarction Breast cancer Colorectal cancer Social History Smoking Status: Current some day smoker Tobacco Type: Cigars Age Started Using Tobacco: 18; Second Hand Exposure: Yes; Do You Dip or Chew Tobacco: No; Hx Alcohol Use: No Hx Substance Use: No Preferred Language: Swedish Communication Ability: Effective Visual Impairment: No Limitations Hearing Ability: Normal Finisher Hot Strip Required: No Beliefs That Will Affect Care: None marital status: single Current Living Situation: Spouse Current Living Situation Comment: lives with girlfrienkamala Lopez current occupational status: employed 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 [employer] Feels Safe at Home: Yes Safety Concerns: Feels Safe At This Time Childhood Exposure to Second-Hand Smoke: No Diet: regular Dental Care, Regularly: No Physical Activity Frequency: 3-4 Times per Week Seatbelt Use: always Sunscreen Use: No Assistive Devices: Contacts Review of Systems Review of Systems: The patient denies chest pain, palpitations, lower extremity swelling, nausea, vomiting, diarrhea , constipation, abdominal pain, pelvic pain, blood in urine or stool, dysuria, urinary frequency or urgency, memory loss, loss of consciousness, rash, abnormal bruising or bleeding, focal weakness, numbness or tingling in arms or legs, generalized arthralgias or myalgias, back or neck pain, or night sweats. The review of systems is otherwise negative other than for that already noted above, and at least 10 systems have been reviewed. Physical Exam Physical Exam: The patient is awake, alert and oriented 3, appears very fatigued and exhausted, normocephalic and atraumatic, lying in bed and in no acute distress. HEENT--PERRL, EOMI, mucous membranes and oropharynx dry. Neck--supple. No JVD. No bruits. Thyroid normal, trachea midline, no adenopathy. Heart--normal S1 and S2. No murmurs, rubs or gallops. Lungs--clear bilaterally, no respiratory distress, no accessory muscle use. Abdomen--normal bowel sounds and soft. Nontender. Nondistended, no hernias or masses, no organomegaly. Extremities--no cyanosis or clubbing. No edema. There are good distal pulses b/l. Dermatologic--normal skin turgor, normal color, no abnormal lymph nodes, no rash. Neurologic--cranial nerves II through XII grossly intact. Rheumatologic--normal range of motion. Psychiatric--normal affect. Results & Data Results & Data Vital Signs (Past 12 Hours) Vital Signs Temp Pulse Pulse Resp BP BP Pulse Ox 06/18/24 23:35 108 H 24 93/63 L 93 06/18/24 22:00 106 H 22 126/78 96 06/18/24 20:54 105 H 06/18/24 20:54 104 H 32 H 148/84 H 97 06/18/24 20:12 36.9 C 110 H 20 146/82 H 96 O2 Del Method 06/18/24 23:35 Room Air 06/18/24 22:00 Room Air 06/18/24 20:54 06/18/24 20:54 Room Air 06/18/24 20:12 Room Air Laboratory Results Laboratory Results WBC 5.40 K/ul (4.8-10.8) 06/18/24 20:23 RBC 5.55 M/uL (4.70-6.10) 06/18/24 20:23 Hgb 16.2 g/dl (14.0-18.0) 06/18/24 20:23 Hct 48.1 % (42.0-52.0) 06/18/24 20:23 MCV 86.7 fL (80.0-100.0) 06/18/24 20:23 MCH 29.2 pg (25.0-34.0) 06/18/24 20:23 MCHC 33.7 g/dL (32.0-36.0) 06/18/24 20:23 RDW Std Deviation 41.3 fL (36.4-46.3) 06/18/24 20:23 RDW Coeff of Beverley 13.2 % (11.5-14.5) 06/18/24 20:23 Plt Count 144 K/uL (130-400) 06/18/24 20:23 MPV 9.3 fL (9.4-12.4) L 06/18/24 20:23 Immature Gran % (Auto) 0.4 % 06/18/24 20:23 Neut % (Auto) 79.6 % 06/18/24 20:23 Lymph % (Auto) 4.8 % 06/18/24 20:23 [place] % (Auto) 14.1 % 06/18/24 20:23 Eos % (Auto) 0.9 % 06/18/24 20:23 Baso % (Auto) 0.2 % 06/18/24 20:23 Neut # (Auto) 4.30 K/uL (1.40-6.50) 06/18/24 20:23 Lymph # (Auto) 0.26 K/uL (1.20-3.40) L 06/18/24 20:23 [place] # (Auto) 0.76 K/uL (0.11-0.59) H 06/18/24 20:23 Eos # (Auto) 0.05 K/uL (0.00-0.50) 06/18/24 20:23 Baso # (Auto) 0.01 K/uL (0.00-0.20) 06/18/24 20:23 Immature Gran # (Auto) 0.02 K/uL (0.01-0.20) 06/18/24 20:23 Sodium 140 mmol/L (136-145) 06/18/24 20:23 Potassium 3.7 mmol/L (3.5-5.1) 06/18/24 20:23 Chloride 107 mmol/L (98-107) 06/18/24 20:23 Carbon Dioxide 24 mmol/L (21-32) 06/18/24 20:23 Anion Gap 9 (3-11) 06/18/24 20:23 BUN 10 mg/dl (6-23) 06/18/24 20:23 Creatinine 1.34 mg/dl (0.6-1.4) 06/18/24 20:23 Est Cr Clr Drug Dosing Not Reportable 06/18/24 20:23 eGFR 56.99 06/18/24 20:23 BUN/Creatinine Ratio 7.5 (10-20) L 06/18/24 20:23 Glucose 100 mg/dl (70-99(Fasting)) H 06/18/24 20:23 Calcium 9.0 mg/dl (8.6-10.3) 06/18/24 20:23 Magnesium 1.6 mg/dl (1.7-2.4) L 06/18/24 20:23 Total Bilirubin 0.9 mg/dl (0.2-1.0) 06/18/24 20:23 AST 32 U/L (13-39) 06/18/24 20:23 ALT 35 U/L (7-52) 06/18/24 20:23 Alkaline Phosphatase 95 U/L (34-104) 06/18/24 20:23 Total Protein 7.3 gm/dl (6.0-8.3) 06/18/24 20:23 Albumin 4.7 gm/dl (3.4-5.0) 06/18/24 20:23 Globulin 2.6 gm/dl (2.5-4.0) 06/18/24 20:23 Albumin/Globulin Ratio 1.8 (0.9-2) 06/18/24 20:23 TSH 1.698 uIu/ml (0.300-4.500) 06/18/24 20:23 Urine Color Yellow 06/19/24 01:03 Urine Appearance Clear (Clear) 06/19/24 01:03 Urine pH 5.0 (4.5-7.5) 06/19/24 01:03 Ur Specific [place] 1.025 (1.000-1.030) 06/19/24 01:03 Urine Protein Trace (Negative) H 06/19/24 01:03 Urine Glucose (UA) 2+ (Negative) H 06/19/24 01:03 Urine Ketones Trace (Negative) H 06/19/24 01:03 Urine Blood Negative (Negative) 06/19/24 01:03 Urine Nitrite Negative (Negative) 06/19/24 01:03 Urine Bilirubin Negative (Negative) 06/19/24 01:03 Urine Urobilinogen Negative (Negative) 06/19/24 01:03 Ur Leukocyte Esterase Negative (Negative) 06/19/24 01:03 Urine WBC (Auto) 0-5 /hpf (0-5) 06/19/24 01:03 Urine RBC (Auto) 0-2 /hpf (0-2) 06/19/24 01:03 U Hyaline Cast (Auto) 0-2 /lpf (0-2) 06/19/24 01:03 U Epithel Cells (Auto) 0-2 /hpf (0-2) 06/19/24 01:03 Urine Bacteria (Auto) None Seen (None Seen) 06/19/24 01:03 Code Status & VTE Plan Code Status Full code VTE Prophylaxis Plan VTE Prophylaxis will be ordered: Yes PG Care Time/CCT Total # of Minutes Spent Total Time Spent with Patient: Total time spent is greater than 50% in coordination of care (as documented) at patient's floor/unit and/or counseling patient: Coding Level of Care Code 04047 INT INP/OBS CARE 3/75MIN Diagnoses Influenza A J10.1 Generalized weakness R53.1 Hypomagnesemia E83.42 Acute kidney injury N17.9
[2024-06-19 01:15] LABS: Appearance Urine Clear (Clear); Bacteria Urine Automated None Seen (None Seen); Bilirubin Urine Negative (Negative); Blood Urine Negative (Negative); Cast Urine Automated 0-2 /lpf (0-2); Color Urine Yellow; Epithelial Cell Urine Auto 0-2 /hpf (0-2); Glucose Urine UA 2+ (Negative); Ketones Urine Trace (Negative); Leukocyte Esterase Urine Negative (Negative); Nitrite Urine Negative (Negative); Protein Urine Trace (Negative); RBC Urine Automated 0-2 /hpf (0-2); Specific Gravity Urine 1.025 (1.000-1.030); Urobilinogen Urine Negative (Negative); WBC Urine Automated 0-5 /hpf (0-5)
[2024-06-19] MEDS: methylPREDNISolone 125 MG/2 ML VIAL IV STA (01:21)
[2024-06-19] MEDS ORDERED: GLUCAGON FOR INJ 1 MG VIAL SQ PRN (01:45)
[2024-06-19] MEDS ORDERED: CARBOHYDRATES FOR HYPOGLYCEMIA PO PRN (01:45)
[2024-06-19] MEDS ORDERED: DEXTROSE 50% 50 ML SYRINGE IV PRN (01:45)
[2024-06-19] MEDS ORDERED: GLUCOSE 40% GEL 15 GM TUBE PO PRN (01:45)
[2024-06-19] MEDS ORDERED: GLUCOSE 10 TAB/TUBE PO PRN (01:45)
[2024-06-19] MEDS ORDERED: ONDANSETRON INJ 2 MG/ML 2 ML VIAL IV PRN (01:45)
[2024-06-19] MEDS ORDERED: HYDROcodone/HOMATROPINE SYRUP 5MG/1.5MG 5ML UDP PO PRN (01:45)
[2024-06-19] MEDS: Patient's HEIGHT &/or WEIGHT Needed STA (03:11)
[2024-06-19] MEDS: METOPROLOL TARTRATE 25 MG TAB PO SCH (08:07)
[2024-06-19] MEDS: ASPIRIN 81 MG ECTAB PO SCH (08:07)
[2024-06-19] MEDS: OSELTAMIVIR PHOSPHATE 75 MG CAP PO SCH (08:07)
[2024-06-19] MEDS: guaiFENesin 600 MG TABCR PO SCH (08:07)
[2024-06-19] MEDS: ENOXAPARIN INJ 40 MG/0.4 ML SYR SQ SCH (08:08)
[2024-06-19 08:47] LABS: Estimated Average Glucose 171 mg/dl; Hemoglobin A1C 7.6 % (4.5-5.6)
[2024-06-19] MEDS: INSULIN ASPART PER UNIT CHARGE SC SCH (09:33)
[2024-06-19] MEDS: methylPREDNISolone 40 MG in SYRINGE 0 ML IV SCH (10:08)
--- NOTE | 2024-06-19 12:43 | Electrocardiogram Report ---
Test Reason : Blood Pressure : */* mmHG Vent. Rate : 112 BPM Atrial Rate : 112 BPM P-R Int : 168 ms QRS Dur : 84 ms QT Int : 354 ms P-R-T Axes : 40 -28 64 degrees QTcB Int : 483 ms Sinus tachycardia with occasional Premature ventricular complexes Otherwise normal ECG When compared with ECG of 27-Dec-2017 09:05, Premature ventricular complexes are now Present Vent. rate has increased by 53 bpm Confirmed by Clovis López ([id number]) on 06/19/2024 12:42:58 PM Referred By: REFERRED SELF Confirmed By: Clovis López
--- NOTE | 2024-06-19 16:47 | History & Physical Bridge Note ---
Date of Service June 19, 2024 History & Physical Bridge Note I have examined the patient, reviewed the History & Physical and in the interval since the performance of the History & Physical I have noted the following changes of clinical significance: Pt seen in late afternoon on day of admission and already feeling so much better. Is now independent in room , denies lightheadedness, SOB, chest pain, nausea, diarrhea. He has a mild cough. Glucose has been quite high on steroids Vitals reviewed NAD< AAOx3 RRR no mgr CTAB no wcr Abd +BS soft NT ND Ext no edema 68 yo male here iwth Influenza A, generalized weakness, DMII wiht hyperglycemia from corticosteroids Continue tamiflu, finish out last bag of IVFs then stop Stop IV steroids as no COPD or wheezing and causing hyperglycemia Will add on PT/OT consults for AM but he is independent in room already with nursing so likely won't need rehab eval Likely dc to home in AM if continues to do well Check CBC, BMP, mag in AM
[2024-06-19 20:03] VITALS: TEMP 97.7; O2SAT 95
[2024-06-19] MEDS: ATORVASTATIN 40 MG TAB PO SCH (20:51)
[2024-06-20 07:02] VITALS: BP 116/69; PULSE 61; RESP 16
[2024-06-20 07:32] LABS: Total Protein 5.8 gm/dl (6.0-8.3)
[2024-06-20 07:33] LABS: Albumin Globulin Ratio 1.4 (0.9-2); Albumin Level 3.4 gm/dl (3.4-5.0); BUN Creatinine Ratio 16.7 (10-20); Bilirubin,Total 0.5 mg/dl (0.2-1.0); Calcium 8.5 mg/dl (8.6-10.3); Creatinine Clr Calc Pharmacy 60.5 ml/min; Globulin 2.4 gm/dl (2.5-4.0); Magnesium 2.1 mg/dl (1.7-2.4); Potassium 4.2 mmol/L (3.5-5.1)
[2024-06-20 07:51] LABS: Basophils # (auto) 0.01 K/uL (0.00-0.20); Basophils % (auto) 0.1 %; Eosinophils # (auto) 0.04 K/uL (0.00-0.50); Eosinophils % (auto) 0.4 %; Hematocrit (blood only) 39.3 % (42.0-52.0); Hemoglobin 13.3 g/dl (14.0-18.0); Immature Granulocytes # (auto) 0.04 K/uL (0.01-0.20); Immature Granulocytes % (auto) 0.4 %; Lymphocytes # (auto) 0.89 K/uL (1.20-3.40); Lymphocytes % (auto) 9.9 %; Mean Corpuscular Hemoglobin 29.8 pg (25.0-34.0); Mean Corpuscular Hgb Conc 33.8 g/dL (32.0-36.0); Mean Corpuscular Volume 87.9 fL (80.0-100.0); Mean Platelet Volume 9.9 fL (9.4-12.4); Monocytes # (auto) 1.16 K/uL (0.11-0.59); Monocytes % (auto) 12.9 %; Neutrophils # (auto) 6.85 K/uL (1.40-6.50); Neutrophils % (auto) 76.3 %; Platelet Count 138 K/uL (130-400); RDW Coefficient of Variation 13.2 % (11.5-14.5); RDW Standard Deviation 42.2 fL (36.4-46.3); Red Blood Count 4.47 M/uL (4.70-6.10); White Blood Count 8.99 K/ul (4.8-10.8)
--- NOTE | 2024-06-20 09:36 | Discharge Summary ---
Discharge Summary Date of Service June 20, 2024 Principal Dx & Hospital Course #1 = Principal Diagnosis (1) Influenza A: (2) Generalized weakness: (3) Hypomagnesemia: (4) Acute kidney injury: Plan The patient is a 68-year-old male with a h/o HLD,DMII, HTN, and CAD s/p CABG. He initially presented to the emergency department early in the morning of admission and was diagnosed with influenza A at that time. He felt that he was able to go home after symptomatic treatment, however, he developed progressively worsening fatigue, generalized weakness, ambulatory dysfunction, and had a near syncopal episode where to lower himself gently to the floor and was unable to get back up. He presented back to the ED for further assessment later in the afternoon, and was then referred for evaluation for admission. CXR neg for PNA, he was not hypoxic. ECG without ischemic changes, no chest pain. #Influenza A/Generalized weakness-Patient with significant fatigue, generalized weakness, ambulatory dysfunction, myalgias and arthralgias all realted to acute infectino with Influenza A. He was treated with Tamiflu, IVFs, and received 2 doses of IV steroids (but has no h/o pulm disease or wheezing). Steroids caused hyperglycemia but did help him feel significantl yimproved with his energy level. Steroids were stopped. He was indepently ambulating, denied SOB, CP, lightheadedness, weakness on day of discharge. He was eating and drinking, no GI issues, stable for discharge. CBC, BMP , magnesium normal, AST mild elevation at 41 likely due to influenza. -finish out 5 day course of Tamiflu 75 mg p.o. twice daily after discharge-needs 3 more days -OTC cough suppressant as needed but has not used any here #Diabetes mellitus-HgbA1C controlled at 7.6%, received Novolog while here for hyperglycemia from steroids. 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 He initially presented to the emergency department early in the morning, and was diagnosed with influenza A at that time. He felt that he was able to go home after symptomatic treatment, however, he developed progressively worsening fatigue, generalized weakness, ambulatory dysfunction, and had a near syncopal episode where to lower himself gently to the floor and was unable to get back up. He presented to the ED for further assessment and later in the afternoon, and was then referred for evaluation for admission. Discharge Exam Constitutional WD/WN, vitals as above Eyes PERRL, conjunctivae normal, anicteric sclerae ENMT external ear and nose normal, oropharynx normal Neck trachea midline, no thyromegaly Respiratory normal respiratory effort, lungs clear to auscultation Cardiovascular RRR, no murmur, no edema Chest (Breasts) Chest: normal inspection of chest Gastrointestinal (Abdomen) normal bowel sounds, soft, nontender, no hepatosplenomegaly Musculoskeletal Extremities: extremities normal to inspection; no cyanosis and no clubbing Skin no rashes, warm and dry Neurologic moves all extremities and awake; no focal motor deficits Psychiatric A+Ox3, euthymic affect Lymphatic no lymphedema Discharge Plan Discharge Items Patient Disposition: Home - Self-Care Reason For Visit: INFLUENZA A Discharge Diagnosis: Influenza A Generalized weakness Condition on Discharge: Good Activity: Resume your previous activity Non-emergency contact: Primary Care Provider Call non-emergency contact if: you have any medication questions and your symptoms worsen Follow-up/Referrals: Ilia Knott, [Primary Care Provider] - 06/27/24 11:00 am (Please follow up within 1-2 weeks) Diet: Carb Consistent or DM2 and Heart Healthy Addtl Attending Provider Instructions: Please finish out the course of Tamiflu for your Influenza A. Pending Studies at Discharge: No Stand-Alone Forms: My [facility] [employer], Smoking Cessation Medications and DC Order Prescriptions: New oseltamivir [Tamiflu] 75 mg Capsule 75 mg PO BID Qty: 6 0RF Continued atorvastatin 80 mg tablet 80 mg PO HS Qty: 90 3RF glimepiride 4 mg tablet 4 mg PO BID 90 Days Qty: 180 3RF metformin 500 mg tablet extended release 24 hr 1,000 mg PO BID 90 Days Qty: 360 3RF metoprolol tartrate 25 mg tablet 25 mg PO BID Qty: 180 3RF aspirin [Dominique Low Dose Aspirin] 81 mg tablet,delayed release (DR/EC) 81 mg PO QAM Discharge Orders: Discharge Order (Routine); Ordered 06/20/24 Ordered By: Macarena Olmstead/Other Patient Handouts: ED Influenza (Adult) Admission Data Admit Date/Time: 06/19/24 00:38 Attending Provider: Macarena Kelly Admit Provider: Chung Padilla Primary Care Provider: Ilia Knott Other Providers: Chung Padilla Other Interventions: Discharge Summary Assessment (RN) Last Done: 06/20/24 09:40 Hospital Stay Data Consultations 06/19/24 00:05 ED Decision to Admit Stat Pending Results Patient Have Any Pending Studies at Discharge: No Discharge Instructions Given to Patient (Per Discharging Provider) Please finish out the course of Tamiflu for your Influenza A. Total Time Total Time Spent Total Time Spent (In Minutes): 35 min Total Time Includes: Examination of the Patient, Discharge Planning and Medication Reconciliation Coding Level of Care Code 16579 INP/OBS DISCH >30 MIN Diagnoses Influenza A J10.1 Generalized weakness R53.1 Hypomagnesemia E83.42 Acute kidney injury N17.9
[2024-06-20] MEDS ORDERED: methylPREDNISolone 10 mg/mL (For Ped Dose < 7mg) IV SCH (10:00)
== END 2024-06-20 10:46 | disposition home or self-care (01) ==
LOC: ED 20:09 → EDINP 20:09 → SUATTDRO 06-19 00:38 → 3E 06-19 01:45